=== PATIENT | male | born 1980 | race Caucasian/White ===

== ENCOUNTER → 2018-06-18 22:51 | Outpatient (CLI) | payer OTHER, SELFPAY ==
[2018-06-18 23:01] LABS: Absolute Lymphocyte Count 2.39 X10^3/ul (0.83-4.51); Absolute Neutrophil Count 3.8 X10^3/uL (2.0-7.7); Basophil# 0.01 X10^3/uL; Basophil% 0.1 % (0-1); Hematocrit 39.7 % (40-54); Hemoglobin 13.6 g/dl (13.0-16.5); Lymphocyte # 2.39 X10^3/ul (4.0); Lymphocyte % 34.8 % (19-41); Mean Corp Hgb Conc 34.3 g/gl (32-36); Mean Corpuscular Hgb 30.2 pg (27.0-32.0); Mean Platelet Vol. 10.1 fl (6.2-12.0); Monocyte# 0.62 X10^3/uL; Neutrophil # 3.84 X10^3/uL (2.7-7.7); Platelet Count 176 K/mm3 (150-450); RBC Distribution Width CV 12.9 % (11.6-14.6); RBC Distribution Width SD 41.5 fl (35.1-43.9); Red Blood Count 4.51 M/mm3 (4.6-6.2); White Blood Count 6.9 K/mm3 (4.4-11.0)
[2018-06-18 23:05] LABS: POSITIVE COUNT NO; POSITIVE DIFFERENTIAL NO; POSITIVE MORPHOLOGY NO
[2018-06-18 23:27] LABS: ALB/GLOB Ratio 1.3 RATIO (0.9-2.4); AST(SGOT) 20 U/L (15-37); Alanine Aminotransfer ALT/SGPT 29 U/L (16-61); Albumin, Serum 3.9 g/dL (3.2-5.0); Alkaline Phosphatase 100 U/L (45-117); Anion Gap 6 (5-15); BUN 17 mg/dL (7-18); BUN/Creat Ratio 14.7 RATIO (10-20); Calcium,Total 8.1 mg/dL (8.5-10.1); Chloride 106 mmol/L (98-107); Creatinine, Serum 1.16 mg/dL (0.70-1.30); EST Glomerular Filtration Rate 74 mL/min (>60); Est Glom Filt Rate - Afr Amer 90 mL/min (>60); Globulin 3.1 g/dL (2.2-4.2); Glucose 66 mg/dL (74-106); Potassium 4.1 mmol/L (3.5-5.1); Sodium Level 141 mmol/L (136-145)
== END ==
PROVIDERS: Visit Provider Nurse Practitioner
DX: I35.1 Nonrheumatic aortic (valve) insufficiency (principal); R06.02 Shortness of breath
CPT/HCPCS: 80053; 84443; 85025

== ENCOUNTER → 2018-07-04 09:31 | Outpatient (CLI) | payer OTHER, SELFPAY ==
--- NOTE | 2018-07-04 09:36 | STE_ITS ---
Reason For Study: VAVLE REPLACEMENT-EVAL Stress Results Protocol: Alma Protocol Maximum Predicted HR: 180 bpm Target HR: 153 bpm % Maximum Predicted HR: 94 % DurationHeart Rate Stage (mm:ss) (bpm) BP Comment BASELINE 63 122/82SOB WHEN ARRIVED ALMA 1 3:00 95 132/86 STAGE 2 3:00 115 140/86 STAGE 3 3:00 127 142/84 STAGE 4 3:00 146 144/80 STAGE 5 2:00 169 / RECOVERY 90 120/88DIZZY WHEN TREADMILL STOPPED ABRUBTLY Stress Duration: 14:00 mm:ss Maximum Stress HR: 169 bpm Baseline Echocardiogram Findings The estimated ejection fraction is 65 %. Stress Echo Wall motion Data Resting WM Intermediate WM Stress WM Resting Wall Motion Wall Motion Stress No regional wall motion No regional wall motion abnormalities noted. abnormalities noted. EKG Data The baseline ECG displays normal sinus rhythm. The patient exercised according to the regular Alma protocol for a total duration of 14:00. The maximum heart rate attained was 171 beats per minute. This was 95% of maximum predicted heart rate. The patient exercised into stage 5 of the Alma protocol. During stress, there were no ST or T wave changes noted to suggest ischemia. No clinical angina was noted. Interpretation Summary The estimated ejection fraction is 65 %. Normal, adequate, treadmill echocardiogram. Negative for ischemia by EKG and echocardiographic anterior. No anginal symptoms noted. No arrhythmias noted. Appropriate blood pressure response to exercise. Patient's baseline peak and mean gradient across the aortic valve for 25/15 mmHg respectively. Peak gradient at across the aortic valve at peak exercise was 70/42 mmHg. The patient had excellent exercise capacity for age. Final LVEF is 75%. Test terminated due to leg discomfort. No acute decrease in blood pressure at peak exercise. Aortic valve most likely does not need to be replaced at this time. Ordering Physician: Perfecto Keita Referring Physician: Perfecto Keita Performed By: Brodwolf, Aroldo, RCS
== END ==
PROVIDERS: Family Provider Nurse Practitioner; PCP Nurse Practitioner; Referring Provider Internal Medicine Cardiovascular Disease; Visit Provider Internal Medicine Cardiovascular Disease
DX: I35.0 Nonrheumatic aortic (valve) stenosis (principal); I35.1 Nonrheumatic aortic (valve) insufficiency; R06.02 Shortness of breath; R01.1 Cardiac murmur, unspecified
CPT/HCPCS: 93017; 93350

== ENCOUNTER → 2018-08-08 20:35 | Outpatient (CLI) | payer OTHER, SELFPAY ==
[2018-06-24 09:56] VITALS: BMI 25.4
[2018-08-08 21:05] LABS: AST(SGOT) 23 U/L (15-37); Alanine Aminotransfer ALT/SGPT 30 U/L (16-61); Alkaline Phosphatase 99 U/L (45-117); Cholesterol 147 mg/dL (200); High Density Lipoprotein 38 mg/dL; Triglycerides 270 mg/dL; Very Low Density Lipoprotein 54 mg/dL (5-40)
[2018-08-08 21:09] LABS: Free T3 3.3 pg/mL (2.18-3.98); T4 Free Direct 1.21 ng/dL (0.76-1.46); Thyroid Stim Hormone (TSH) 0.92 uIU/mL (0.358-3.74)
[2018-08-10 11:05] LABS: Thyroid Peroxidase AB 115 IU/mL (0-34)
== END ==
PROVIDERS: Internal Medicine Cardiovascular Disease; Family Provider Nurse Practitioner; PCP Nurse Practitioner; Referring Provider Nurse Practitioner; Visit Provider Nurse Practitioner
DX: E03.9 Hypothyroidism, unspecified (principal)
CPT/HCPCS: 80061; 80076; 84439; 84443; 84481; 86376

== ENCOUNTER → 2019-04-21 17:38 | Outpatient (CLI) | payer BC, SELFPAY ==
[2018-11-25 16:39] VITALS: BMI 25.7
--- NOTE | 2019-04-21 18:15 | MRI_ITS ---
STUDY: MRI BRAIN WITH AND WITHOUT CONTRAST REASON FOR EXAM: Male, 39 years old. Right-sided hearing loss and pain TECHNIQUE: Standardized multiplanar fat and water weighted pulse sequences were obtained. 17 IV Dotarem was administered for the contrast portion of the examination. COMPARISON: None. FINDINGS: Normal size of the ventricles and extra-axial spaces for the patient's age. Normal white matter tracts of the supratentorial brain. Normal bilateral basal ganglia. Normal thalami. There is no extra-axial fluid accumulation. Normal flow voids within the major intracranial circulation suggesting patency by spin echo criteria. There is a small venous angioma seen in the right frontal lobe likely of no significance. Normal sella turcica, pituitary gland, infundibular stalk, optic chiasm and hypothalamus. Normal tectal plate and pineal gland. Normal midbrain, marilou and medulla. Normal cerebellum. Normal basal cisterns. Normal bilateral temporal bones. Normal bilateral internal auditory canals. No demonstrated orbital abnormality, within the constraints of a routine brain study. Mild bilateral mucosal thickening of the maxillary sinuses.. Normal calvarium and skull base. 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 Normal visualized upper cervical spine. MRI/Brain W/WO Contrast IMPRESSION: Small venous angioma within the right frontal lobe likely of no significance.. Mild bilateral maxillary sinus disease. 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 No evidence for acoustic or vestibular schwannoma. Electronically Signed: Austen Justin MD at 19:56 EDT , Service support ,
== END ==
PROVIDERS: Family Provider Nurse Practitioner; PCP Nurse Practitioner; Referring Provider Otolaryngology; Visit Provider Otolaryngology
DX: H93.11 Tinnitus, right ear (principal); H91.91 Unspecified hearing loss, right ear
CPT/HCPCS: 70553; A9575

== ENCOUNTER → 2019-06-10 21:53 | Outpatient (CLI) | payer BC, SELFPAY ==
[2019-06-09 12:12] VITALS: BMI 24.5
[2019-06-10 22:24] LABS: T4 Free Direct 1.22 ng/dL (0.76-1.46); Thyroid Stim Hormone (TSH) 0.47 uIU/mL (0.358-3.74)
[2019-06-12 12:29] LABS: Thyroid Peroxidase AB 72 IU/mL (0-34)
== END ==
PROVIDERS: Family Provider Nurse Practitioner; PCP Nurse Practitioner; Visit Provider Nurse Practitioner
DX: E03.9 Hypothyroidism, unspecified (principal); R42 Dizziness and giddiness
CPT/HCPCS: 84439; 84443; 86376

== ENCOUNTER → 2020-01-25 | Outpatient (CLI) | payer SELFPAY ==
[2019-10-06 18:03] VITALS: BMI 25.2
[2020-01-25 22:30] LABS: T3 Total - Triiodothyronine 1.06 ng/mL (0.6-1.81)
[2020-01-25 22:36] LABS: T4 Free Direct 1.08 ng/dL (0.76-1.46); Thyroid Stim Hormone (TSH) 1.23 uIU/mL (0.358-3.74)
[2020-01-27 13:29] LABS: Thyroid Peroxidase AB 96 IU/mL (0-34)
== END | disposition home or self-care (01) ==
PROVIDERS: Visit Provider Nurse Practitioner
DX: E03.9 Hypothyroidism, unspecified (principal); E06.3 Autoimmune thyroiditis
CPT/HCPCS: 84439; 84443; 84480; 86376

== ENCOUNTER → 2020-04-26 21:48 | Outpatient (CLI) | payer BC, SELFPAY ==
[2020-01-25 12:43] VITALS: BMI 24.3
[2020-04-26 22:18] LABS: T3 Total - Triiodothyronine 1.19 ng/mL (0.6-1.81)
[2020-04-26 22:28] LABS: T3 Uptake 41 % (33-40); T4 Free Direct 1.38 ng/dL (0.76-1.46); Thyroid Stim Hormone (TSH) 0.37 uIU/mL (0.358-3.74)
== END ==
PROVIDERS: Visit Provider Nurse Practitioner
DX: E06.3 Autoimmune thyroiditis (principal); H81.09 Meniere's disease, unspecified ear; E03.9 Hypothyroidism, unspecified
CPT/HCPCS: 84439; 84443; 84479; 84480

== ENCOUNTER → 2020-10-19 21:37 | Outpatient (CLI) | payer BC, SELFPAY ==
[2020-10-19 18:37] VITALS: BMI 25.2
[2020-10-19 22:05] LABS: T4 Free Direct 1.14 ng/dL (0.76-1.46); Thyroid Stim Hormone (TSH) 0.85 uIU/mL (0.358-3.74)
== END ==
PROVIDERS: Referring Provider Nurse Practitioner; Visit Provider Nurse Practitioner
DX: E03.9 Hypothyroidism, unspecified (principal)
CPT/HCPCS: 84439; 84443

== ENCOUNTER → 2021-03-16 21:33 | Outpatient (CLI) | payer BC, SELFPAY ==
[2021-03-16 21:11] VITALS: BMI 24.3
[2021-03-16 22:18] LABS: Absolute Lymphocyte Count 1.54 X10^3/uL (0.83-4.51); Absolute Neutrophil Count 5.6 X10^3/uL (2.0-7.7); Basophil# 0.03 X10^3/uL; Basophil% 0.4 % (0-1); Hematocrit 41.2 % (40-54); Hemoglobin 13.9 g/dL (13.0-16.5); Lymphocyte # 1.54 X10^3/ul (0.83-4.51); Lymphocyte % 20.3 % (19-41); Mean Corp Hgb Conc 33.7 g/dL (32-36); Mean Corpuscular Hgb 29.5 pg (27.0-32.0); Mean Corpuscular Volume 87.5 fL (80-94); Mean Platelet Vol. 9.5 fl (6.2-12.0); Monocyte# 0.42 X10^3/uL; Monocyte% 5.5 % (0-10); NRBC Flagged by Analyzer 0 % (0-5); Neutrophil # 5.57 X10^3/uL (2.7-7.7); Neutrophil % 73.3 % (47-70); Platelet Count 306 K/mm3 (150-450); RBC Distribution Width CV 12.7 % (11.6-14.6); RBC Distribution Width SD 40.4 fl (35.1-43.9); Red Blood Count 4.71 M/mm3 (4.6-6.2); White Blood Count 7.6 K/mm3 (4.4-11.0)
[2021-03-16 22:35] LABS: T4 Free Direct 1.23 ng/dL (0.76-1.46); Thyroid Stim Hormone (TSH) 2.03 uIU/mL (0.358-3.74)
[2021-03-16 22:45] LABS: D-Dimer Quantitative (DVT/PE) 0.74 FEU/ug/m (0.27-0.49)
[2021-03-16 22:50] LABS: BNP,B-Type NATRIURETIC PEPTIDE 59.8 pg/mL (0-100)
== END ==
PROVIDERS: Referring Provider Nurse Practitioner; Visit Provider Nurse Practitioner
DX: E03.9 Hypothyroidism, unspecified (principal); R06.02 Shortness of breath
CPT/HCPCS: 83880; 84439; 84443; 85025; 85379

== ENCOUNTER 2021-11-10 21:38 | Outpatient (CLI) | payer BC, SELFPAY | END 2021-11-10 23:59 | disposition home or self-care (01) | PROVIDERS: Referring Provider Nurse Practitioner; Visit Provider Nurse Practitioner | DX: E03.9 Hypothyroidism, unspecified (principal) | CPT/HCPCS: 84443 ==

== ENCOUNTER → 2022-12-03 | Outpatient (CLI) | payer BC, SELFPAY ==
[2022-12-03 22:05] LABS: T4 Free Direct 0.98 ng/dL (0.76-1.46); Thyroid Stim Hormone (TSH) 3.53 uIU/mL (0.358-3.74)
== END | disposition home or self-care (01) ==
PROVIDERS: Visit Provider Nurse Practitioner
DX: E03.9 Hypothyroidism, unspecified (principal)
CPT/HCPCS: 84439; 84443

== ENCOUNTER → 2023-07-31 | Outpatient (CLI) | payer OTHER, SELFPAY ==
[2023-07-31 20:41] LABS: Cholesterol 177 mg/dL (200); High Density Lipoprotein 34 mg/dL; T4 Free Direct 0.59 ng/dL (0.76-1.46); Triglycerides 490 mg/dL
== END | disposition home or self-care (01) ==
PROVIDERS: PCP Nurse Practitioner; Visit Provider Nurse Practitioner
DX: E06.3 Autoimmune thyroiditis (principal); E03.9 Hypothyroidism, unspecified
CPT/HCPCS: 80061; 84439; 84443

== ENCOUNTER → 2023-09-10 | Outpatient (CLI) | payer OTHER, SELFPAY ==
--- OUTSIDE RECORDS SUMMARY | 2023-09-10 21:34 | XMS RPT_ITS | CCD ---
Author Name Unknown Address [facility] [facility] [address] [place] [address] Organization [facility] Care Team Providers Care Chiropractor Assistant Name Role Phone SKEY GALINDO Unavailable JAMES COUGHLIN Primary Care Unavailable OSKAR KIM, RADU Attending Unavail JAMES Lora Primary Care Unavailable OSKAR KIM, RADU Attending Unavail JAMES Lora Primary Care Unavailable Problems Problem Classification Problem Date Documented Da te Episodic/Chronic Heart valve disorders (1 source) Nonrheumatic aortic (valve) stenosis; Translations: [Nonrheumatic aortic (valve) stenosis] Onset: 11-19-2017 Chronic Other lower respiratory disease (1 source) Shortness of breath; Translations: [Shortness of breath] Onset: 11-19-2017 Episodic Results Test Name Value Interpretation Reference Range Facil ity Encounters Encounter Date Encounter Type Care Provider Facility Start: 08-13-2023 End: 08-13-2023 ambulatory JAMES COUGHLIN Facility:[facility] Start: 08-27-2022 End: 08-28-2022 ambulatory JAMESTate COUGHLIN Facility:[facility] Start: 11-19-[address] [facility] Payers Date Payer Category Payer Unknown 1980 Unknown [id number] 1980 Unknown [id number] Progress note 08-13-2023 Note Date & Type Note Facility 08-13-2023 Note HNO ID: [id number] Author: Juhi Schmidt APRN.[employer] Service: ? Author Type: Nurse Practitioner Type: Progress Notes Filed: 08/13/2023 12:50 PM Note Text: This note was created using Blabroomriter. Subjective Carolina Kimbrough is a 43 year old male. HPI by patient: Carolina Kimbrough is a 43 year old presenting to the office with the complaint of viral symptoms. Started approximately 1 week ago , last Saturday. Associated symptoms include cough, congestion, fatigue, body aches, headache, and sore throat. Denies ear pain, gi symptoms, and fever. Covid Immunization Dates Overdue - Covid-19 Vaccine (1) Never done No completion, postpone, frequency change, or communication history exists for this topic. Sick contacts: yes. Smoking history/second hand smoke: none. OTC nyquil only at night. No antibiotic use in the last 60 days. ALLERGIES No Known Allergies Family History Reviewed Including Cardiac Diseases, Psychiatric Diseases, AND Substance Abuse Problem: Stroke Relation: Mother Age of Onset: (Not Specified) Comment: age 52 Problem: No Known Problems Relation: Father Age of Onset: (Not Specified) Comment: alive age 67 Problem: No Known Problems Relation: Child Age of Onset: (Not Specified) Comment: daughter 13 y o well Problem: No Ocular Disease Relation: No Family History Age of Onset: (Not Specified) Social History Tobacco Use Smoking status: Never Smokeless tobacco: Never Vaping Use Vaping Use: Never used Alcohol use: Yes Comment: 3-4 beers one weekday and just weekend Drug use: Yes Frequency: 3.0 times per week Types: Marijuana Comment: marijuanna 3 x per week Active Ambulatory Problems Pre-op testing Date Noted: 02/17/2021 Discharge planning issues Date Noted: 02/17/2021 Aortic valve regurgitation Date Noted: 02/17/2021 Meniere's disease Date Noted: 02/17/2021 Hypothyroidism Postoperative pain HTN (hypertension) Thoracic aortic aneurysm without rupture (HCC) Atelectasis Date Noted: 02/21/2021 Fluid overload Date Noted: 02/22/2021 Encounter for support and coordination of transition of care Date Noted: 02/23/2021 Resolved Ambulatory Problems On mechanically assisted ventilation (HCC) Hypovolemia Past Medical History: No date: Aortic stenosis No date: Bicuspid aortic valve No date: Meniere's syndrome Review of Systems Constitutional: Positive for fatigue. Negative for fever. HENT: Positive for congestion and sore throat. Negative for ear pain. Eyes: Negative. Respiratory: Positive for cough. Cardiovascular: Negative. Gastrointestinal: Negative. Endocrine: Negative. Genitourinary: Negative. Musculoskeletal: Positive for myalgias. Skin: Negative. Neurological: Positive for headaches. Objective Pulse 78 Temp 37 ?C (98.6 ?F) (Oral) Resp 16 Ht 177.8 cm (5' 10 ) Wt 84.4 kg (186 lb 1.1 oz) SpO2 98% BMI 26.70 kg/m? Physical Exam Vitals reviewed. Constitutional: General: He is awake. He is not in acute distress. Appearance: He is not ill-appearing, toxic-appearing or diaphoretic. HENT: Head: Normocephalic and atraumatic. Right Ear: Tympanic membrane, ear canal and external ear normal. Left Ear: Tympanic membrane, ear canal and external ear normal. Nose: Nose normal. Right Sinus: No maxillary sinus tenderness or frontal sinus tenderness. Left Sinus: No maxillary sinus tenderness or frontal sinus tenderness. Mouth/Throat: Mouth: Mucous membranes are moist. Pharynx: Oropharynx is clear. No pharyngeal swelling, oropharyngeal exudate or posterior oropharyngeal erythema. Cardiovascular: Rate and Rhythm: Normal rate and regular rhythm. Pulmonary: Effort: Pulmonary effort is normal. Breath sounds: Normal breath sounds. Lymphadenopathy: Head: Right side of head: No submandibular or tonsillar adenopathy. Left side of head: No submandibular or tonsillar adenopathy. Cervical: No cervical adenopathy. Neurological: Mental Status: He is alert. Psychiatric: Behavior: Behavior is cooperative. Assessment and Plan (J02.9) Pharyngitis, unspecified etiology (primary encounter diagnosis) Plan: STREP A MOLECULAR (POC) (J06.9) Viral upper respiratory tract infection with cough Plan: benzonatate (TESSALON PERLES) 100 mg capsule, fluticasone (FLONASE ALLERGY RELIEF) 50 mcg/actuation nasal spray Education on viral vs bacterial infections. Most viral infections will last 10 days, sometimes 14. It is possible to have back to back viral infections. An antibiotic will not treat a virus. Negative strep culture in office. Assessment is completely normal. -If no improvement in the next several days with what I'm prescribing you may the antibiotic on the paper script. -Tessalon for cough, these are capsules you swallow, do not chew. -Drink lots of fluids and get plenty of rest. Gargle with salt water 3 times/day -Vaporizers, cool mist humidifiers, warm showers, (more content not included)... [facility] Summary Purpose Family History No Family History Records FoundNo Family History Records FoundNo Family History Records FoundNo Family History Records Found Advance Directives No Advanced Directives Records FoundNo Advanced Directives Records FoundNo Advanced Directives Records FoundNo Advanced Directives Records Found Additional Source Comments (unrecognized sect ion and content) No Status Records FoundNo Status Records FoundNo Status Records FoundNo Status Records Found INFORMATION SOURCE (unrecogn ized section and content) DATE CREATED AUTHOR AUTHOR'S ORGANIZ ATION 03/18/2021 [facility] DATE CREATED AUTHOR AUTHOR'S ORGANIZ ATION 08/10/2023 [facility] DATE CREATED AUTHOR AUTHOR'S ORGANIZ ATION 08/14/2023 [facility] FOR RECORDS PERTAINING TO PATIENTS WHO ARE OR HAVE BEEN ENROLLED IN A CHEMICAL DEPENDENCY/SUBSTANCEABUSE PROGRAM, SOME INFORMATION MAY BE OMITTED. This clinical summary was aggregated from multiple sources. Caution should be exercised in using it in the provision of clinical care. This summary normalizes information from multiple sources, and as a consequence, information in this document may materially change the coding, format and clinical context of patient data. In addition, data may be omitted in some cases. CLINICAL DECISIONS SHOULD BE BASED ON THE PRIMARY CLINICAL RECORDS. [facility] [employer] [facility]. provides no warranty or guarantee of the accuracy or completeness of information in this document.
[2023-09-10 22:25] LABS: Thyroid Stim Hormone (TSH) 2.18 uIU/mL (0.358-3.74)
== END | disposition home or self-care (01) ==
PROVIDERS: PCP Nurse Practitioner; Visit Provider Nurse Practitioner
DX: E06.3 Autoimmune thyroiditis (principal); E03.9 Hypothyroidism, unspecified
CPT/HCPCS: 84443

== ENCOUNTER → 2024-09-14 | Outpatient (CLI) | payer OTHER, SELFPAY ==
[2024-09-15 00:53] LABS: Absolute Lymphocyte Count 2.26 X10^3/uL (0.83-4.51); Basophil# 0.03 X10^3/uL; Basophil% 0.3 % (0-1); Eosinophil# 0.01 X10^3/uL; Eosinophils% 0.1 % (0-5); Hematocrit 40.7 % (40-54); Hemoglobin 14.1 g/dL (13.0-16.5); Lymphocyte # 2.26 X10^3/ul (0.83-4.51); Lymphocyte % 25.8 % (19-41); Mean Corp Hgb Conc 34.6 g/dL (32-36); Mean Corpuscular Hgb 30.3 pg (27.0-32.0); Mean Corpuscular Volume 87.5 fL (80-94); Mean Platelet Vol. 10.8 fl (6.2-12.0); Monocyte# 0.48 X10^3/uL; Monocyte% 5.5 % (0-10); NRBC Flagged by Analyzer 0 % (0-5); Neutrophil # 5.95 X10^3/uL (2.7-7.7); Platelet Count 232 K/mm3 (150-450); RBC Distribution Width CV 12.9 % (11.6-14.6); RBC Distribution Width SD 41.1 fl (35.1-43.9); Red Blood Count 4.65 M/mm3 (4.6-6.2); White Blood Count 8.8 K/mm3 (4.4-11.0)
[2024-09-15 01:16] LABS: ALB/GLOB Ratio 1.2 RATIO (0.9-2.4); AST(SGOT) 20 U/L (15-37); Alanine Aminotransfer ALT/SGPT 26 U/L (16-61); Alkaline Phosphatase 109 U/L (45-117); Anion Gap 6 (5-15); BUN 13 mg/dL (7-18); BUN/Creat Ratio 10.7 RATIO (10-20); Calcium,Total 8.9 mg/dL (8.5-10.1); Chloride 106 mmol/L (98-107); Creatinine, Serum 1.21 mg/dL (0.70-1.30); EST Glomerular Filtration Rate 69 mL/min (>60); Est Glom Filt Rate - Afr Amer 83 mL/min (>60); Globulin 3.2 g/dL (2.2-4.2); Glucose 96 mg/dL (74-106); Protein, Total 7.2 g/dL (6.4-8.2); Sodium Level 140 mmol/L (136-145)
== END | disposition home or self-care (01) ==
PROVIDERS: PCP Nurse Practitioner; Referring Provider Nurse Practitioner; Visit Provider Nurse Practitioner
DX: E06.3 Autoimmune thyroiditis (principal); H81.03 Meniere's disease, bilateral
CPT/HCPCS: 80053; 84443; 85025

== ENCOUNTER → 2024-11-10 | Outpatient (CLI) | payer OTHER, SELFPAY ==
[2024-11-11 00:04] LABS: PTHIN 65 pg/mL (11-61)
[2024-11-11 00:15] LABS: Thyroid Stim Hormone (TSH) 0.013 uIU/mL (0.300-4.200)
[2024-11-13 04:06] LABS: PROLACTIN 15.4 ng/mL (3.9-22.7)
== END | disposition home or self-care (01) ==
PROVIDERS: PCP Nurse Practitioner; Referring Provider Nurse Practitioner; Visit Provider Nurse Practitioner
DX: E06.3 Autoimmune thyroiditis (principal); E03.9 Hypothyroidism, unspecified; H81.03 Meniere's disease, bilateral
CPT/HCPCS: 83970; 84146; 84439; 84443

== ENCOUNTER → 2025-02-19 | Outpatient (CLI) | payer OTHER, SELFPAY ==
--- OUTSIDE RECORDS SUMMARY | 2025-02-19 22:49 | XMS RPT_ITS | CCD ---
Author Organization [facility] Care Team Providers Care Inspector Chief Name Role Phone SKYE GALINDO Unavailable Unavailable JAMES COUGHLIN Primary Care Unavailable MATIAS RAMIREZ Attending Unavailable Amado DIRECTOR NETWORK DEVELOPMENT-C, James Primary Care Provider [phone] Amado DIRECTOR NETWORK DEVELOPMENT-C, James Attending Provider Amado DIRECTOR NETWORK DEVELOPMENT-C, James Referring Provider Amado DIRECTOR NETWORK DEVELOPMENT, James Referring Unavailable Coughlin DIRECTOR NETWORK DEVELOPMENT, James Primary Care Unavailable Coughlin DIRECTOR NETWORK DEVELOPMENT, James Attending Unavailable Coughlin DIRECTOR NETWORK DEVELOPMENT, James Referring Unavailable Coughlin DIRECTOR NETWORK DEVELOPMENT, James Primary Care Unavailable Amado DIRECTOR NETWORK DEVELOPMENT, James Attending Unavailable JAMES COUGHLIN Primary Care Unavailable COUGHLIN, DORA Primary Care Unavailable COUGHLIN, DORA Primary Care Unavailable Medications Current Medications Medication Drug Class(es) Dates Sig (Normalized) Sig (Original) meclizine hydrochloride 12.5 mg oral tablet (1 source) Antiemetic Start: 11-10-2024 take 1 tablet by mouth three times daily as needed for dizziness Meclizine 12.5 mg tablet Active 12.5 mg PO THREE TIMES A DAY as needed for dizziness November 10, 2024 12:00am Thyroid (Pork) ([place] Thyroid) 60 mg tablet (1 source) Start: 09-15-2024 take 1 tablet by mouth once daily Thyroid (Pork) ([place] Thyroid) 60 mg tablet Active 60 mg PO daily September 15, 2024 1:00am Thyroid (Pork) ([place] Thyroid) 90 mg tablet (3 sources) Start: 09-15-2024 Thyroid (Pork) ([place] Thyroid) 90 mg tablet Active 90 mg PO DAILY September 15, 2024 3:43pm 90mg+ 60 mg= 120mg Start: 09-13-2023 End: 09-15-2024 Thyroid (Pork) ([place] Thyro id) 90 mg tablet Discontinued 90 mg PO DAILY September 13, 2023 2:27pm September 15, 2024 3:44pm 90mg+ 30 mg= 120mg Start: 09-13-2023 Thyroid (Pork) ([place] Thyroid) 90 mg tablet Active 90 MG PO DAILY September 13, 2023 1:27pm 90mg+ 30 mg= 120mg Completed/Discontinued Medications Medication Drug Class(es) Dates Sig (Normalized) Sig (Original) amoxicillin 875 mg oral tablet (10 sources) Penicillin-class Antibacterial Start: 01-26-2020 End: 04-27-2020 take 1 tablet by mouth twice daily Amoxicillin 875 mg tablet Discontinued 875 mg PO TWICE A DAY January 26, 2020 12:00am April 27, 2020 8:21am Start: 11-25-2018 End: 06-10-2019 take 1 tablet by mouth twice daily Amoxicillin 875 mg tablet Discontinued 875 mg PO TWICE A DAY November 25, 2018 12:00am June 10, 2019 12:14pm azithromycin 250 mg oral tablet (6 sources) Macrolide Antimicrobial Start: 07-27-2024 End: 08-01-2024 take 2 tablets by mouth once daily, then take 1 tablet by mouth once daily at mealtime Azithromycin 250 mg tablet Discontinued 250 mg PO daily 01 14July 27, 2024 1:00am July 31, 2024 1:00am August 01, 2024 1:18am 2 po qd for 1 day then 1 po qd for 4 days with food or after eating Start: 05-15-2019 End: 05-20-2019 take 2 tablets by mouth once daily, then take 1 tablet by mouth once daily at mealtime Azithromycin 250 mg tablet Discontinued 250 mg PO daily 6 May 15, 2019 12:00am May 19, 2019 12:00am May 20, 2019 12:07am 2 po qd for 1 day then 1 po qd for 4 days with food or after eating hydroCHLOROthiazide 25 mg oral tablet (5 sources) Thiazide Diuretic Start: 10-06-2019 End: 10-19-2020 take 1 tablet by mouth twice daily Hydrochlorothiazide 25 mg tablet Discontinued 25 mg PO TWICE A DAY October 06, 2019 1:00am October 19, 2020 7:32pm hydroCHLOROthiazide 25 mg / triamterene 37.5 mg oral capsule (5 sources) Potassium-sparing Diuretic, Thiazide Diuretic Start: 06-11-2019 End: 07-10-2019 Triamterene-Hydrochlor othiazid (Dyazide) 37.5-25 mg capsule Discontinued 1 NMA PO DAILY June 11, 2019 12:00am July 10, 2019 7:58pm levoFLOXacin 500 mg oral tablet (5 sources) Quinolone Antimicrobial Start: 06-11-2019 End: 07-10-2019 take 1 tablet by mouth once daily Levofloxacin 500 mg tablet Discontinued 500 mg PO DAILY June 11, 2019 12:00am July 10, 2019 7:58pm levothyroxine sodium 0.15 mg oral tablet (20 sources) l-Thyroxine Start: 11-13-2021 End: 12-04-2022 take 1 tablet by mouth once daily Levothyroxine 150 mcg tablet Discontinued 150 ug PO DAILY November 13, 2021 12:00am December 04, 2022 1:06pm Start: 10-21-2020 End: 11-13-2021 take 1 tablet by mouth once daily Levothyroxine 175 mcg tablet Discontinued 175 ug PO DAILY October 21, 2020 1:00am November 13, 2021 10:56am Start: 05-23-2020 End: 03-20-2021 Levothyroxine 25 mcg tablet Discontinued 25 ug PO DAILY May 23, 2020 12:00am March 20, 2021 12:11pm taken with 150 mcg every other day Start: 10-06-2019 End: 03-20-2021 take 1 tablet by mouth once daily Levothyroxine 150 mcg tablet Discontinued 150 ug PO DAILY October 06, 2019 1:00am March 20, 2021 12:11pm Start: 06-19-2018 End: 10-06-2019 take 1 capsule by mouth once daily Levothyroxine 150 mcg capsule Discontinued 150 ug PO DAILY August 09, 2018 3:47pm October 06, 2019 7:04pm Start: 06-17-2018 End: 06-19-2018 take 1 tablet by mouth once daily Levothyroxine 125 mcg tablet Discontinued 125 ug PO DAILY June 17, 2018 1:00am June 19, 2018 10:54am Thyroid (Pork) ([place] Thyroid) 30 mg tablet (7 sources) Start: 09-13-2023 End: 09-15-2024 Thyroid (Pork) ([place] Thyro id) 30 mg tablet Discontinued 30 mg PO DAILY September 13, 2023 2:27pm September 15, 2024 3:44pm take with 90 +30 = 120 Start: 09-13-2023 Thyroid (Pork) ([place] Thyroid) 30 mg tablet Active 30 MG PO DAILY September 13, 2023 1:27pm take with 90 +30 = 120 Start: 09-11-2023 End: 09-13-2023 Thyroid (Pork) ([place] Thyro id) 30 mg tablet Discontinued 30 mg PO DAILY September 11, 2023 10:21am September 13, 2023 2:27pm take with 90 +30 = 120 Start: 09-11-2023 End: 09-13-2023 Thyroid (Pork) ([place] Thyro id) 30 mg tablet Discontinued 30 MG PO DAILY September 11, 2023 9:21am September 13, 2023 1:27pm take with 90 +30 = 120 Start: 08-01-2023 End: 09-11-2023 Thyroid (Pork) ([place] Thyro id) 30 mg tablet Discontinued 30 mg PO DAILY August 01, 2023 1:00am September 11, 2023 10:22am take with 90 +30 = 120 Start: 08-01-2023 End: 09-11-2023 Thyroid (Pork) ([place] Thyro id) 30 mg tablet Discontinued 30 MG PO DAILY August 01, 2023 12:00am September 11, 2023 9:22am take with 90 +30 = 120 Start: 08-01-2023 Thyroid (Pork) ([place] Thyroid) 30 mg tablet Active 30 MG PO DAILY August 01, 2023 12:00am take with 90 +30 = 120 thyroid (group home) 90 mg oral tablet (20 sources) Start: 09-11-2023 End: 09-13-2023 Thyroid (Pork) ([place] Thyro id) 90 mg tablet Discontinued 90 mg PO DAILY September 11, 2023 10:21am September 13, 2023 2:27pm 90mg+ 30 mg= 120mg Start: 12-04-2022 End: 09-11-2023 Thyroid (Pork) ([place] Thyro id) 90 mg tablet Discontinued 90 mg PO DAILY December 04, 2022 12:00am September 11, 2023 10:22am 90mg+ 15MG =105 mg Start: 12-04-2022 End: 08-01-2023 take 1 mg by mouth once daily Thyroid (Pork) ([place] T hyroid) 15 mg tablet Discontinued 15 mg PO DAILY December 04, 2022 12:00am August 01, 2023 2:13pm 90mg+15 mg =105 mg Start: 01-26-2020 End: 05-23-2020 take 1 tablet by mouth once daily Thyroid (Pork) 15 mg tablet Discontinued 15 mg PO DAILY April 29, 2020 12:22pm May 23, 2020 12:49pm valACYclovir 1000 mg oral tablet (5 sources) Herpesvirus Nucleoside Analog DNA Polymerase Inhibitor, Herpes Simplex Virus Nucleoside Analog DNA Polymerase Inhibitor, Herpes Zoster Virus Nucleoside Analog DNA Polymerase Inhibitor Start: 07-10-2019 End: 10-19-2020 Valacyclovir 1 gram tablet Discontinued 1000 mg PO THREE TIMES A DAY 90 July 10, 2019 1:00am October 19, 2020 7:32pm Start: 07-10-2019 End: 10-19-2020 take 1000 mg by mouth three times daily Valacyclovir Discontinued 1000 MG PO THREE TIMES A DAY 90 July 10, 2019 12:00am October 19, 2020 6:32pm Problems Problem Classification Problem Date Documented Da te Episodic/Chronic Conditions associated with dizziness or vertigo (10 sources) Meniere's disease; Translations: [Meniere's disease, unspecified ear] 10-19-2020 Chronic Conditions associated with dizziness or vertigo (7 sources) Dizziness; Translations: [Dizziness and giddiness] Onset: 10-18-2024 06-10-2019 Episodic Heart valve disorders (11 sources) Nonrheumatic aortic (valve) stenosis; Translations: [Aortic valve regurgitation] Onset: 11-19-2017 06-20-2018 Chronic Comment on above: Moderate per echo 05/2018 done @ [facility] NAVDEEP 1,63 cm2 per ech o 11/19/2017 done @ [facility] Heart valve disorders (5 sources) Heart murmur; Translations: [Cardiac murmur, unspecified] 06-20-2018 Episodic Other ear and sense organ disorders (5 sources) Impacted cerumen; Translations: [Impacted cerumen, unspecified ear] 11-25-2018 Episodic Other lower respiratory disease (1 source) Shortness of breath; Translations: [Shortness of breath] Onset: 11-19-2017 Episodic Other lower respiratory disease (5 sources) Dyspnea; Translations: [Shortness of breath] 06-20-2018 Episodic Other upper respiratory infections (1 source) Pharyngitis; Translations: [Acute pharyngitis, unspecified] 07-27-2024 Episodic Otitis media and related conditions (15 sources) Otitis media; Translations: [Otitis media, unspecified, left ear] 06-10-2019 Episodic Thyroid disorders (11 sources) Acquired hypothyroidism; Translations: [Hypothyroidism, unspecified] Onset: 11-16-2024 06-10-2019 Chronic Results Test Name Value Interpretation Reference Range Facility PROLACTIN 4465on 11-13-2024 PROLACTIN 15.4 ng/mL Normal 3.9-22.7 [facility] Comment on above: Result Comment: Perf ormed at: [facility] [address] [id number] [place] Vending Mechanic: Duncan Paris PhD, Phone: [phone] Performed By: #### L 506.0400, L501.9520, L3100.5400, L509.1000 #### [facility] [address] [place], [address] PTHINon 11-11-2024 PTH 65 pg/mL High 11-61 [facility] Comment on above: Performed By: #### L 506.0400, L501.9520, L3100.5400, L509.1000 #### [facility] [address] [place], [address] T4 Free Directon 11-11-2024 T4 FREE DIRECT 1.30 ng/dL Normal 0.76-1.46 [facility] Comment on above: Performed By: #### L 506.0400, L501.9520, L3100.5400, L509.1000 #### [facility] [address] [place], [address] Thyroid Stim Hormone (TSH)on 11-11-2024 TSH 0.013 uIU/mL Low 0.300-4.200 [facility] Comment on above: Performed By: #### L 506.0400, L501.9520, L3100.5400, L509.1000 #### [facility] [address] [place], [address] Amb Office-Progress Notes-Pr ovideron 11-10-2024 Amb Office-Progress Notes-Provider CAROLINA KIMBROUGH :1980 Registration Date:11/04/2024 Chief Complaint: office check up History of Present Illness: Disclaimer: The content of this note was generated by an artificial intelligence (AI) language model version 25.01.0.0 This is a follow-up visit for Mr. Kimbrough and he has repair of the bicuspid aortic valve and status post Hemashield aortic graft. He also has a history of M?ni?re's disease and hypothyroidism. The patient reports experiencing vertigo for the past month and a half, which he attributes to Meniere's disease. He describes the vertigo as a sensation of dizziness that has been persistent but has improved over the last two weeks. Approximately two weeks ago, patient presented to the emergency room with dizziness and lightheadedness and his workup was negative including a CT scan of the head. His EKG was normal. No conduction abnormalities. No ischemic changes. He denied any chest pain jaw pain shoulder pain. No shortness of breath. He has hypothyroidism and his thyroid function has been normal. His lipid profile has been stable. Patient seems to be very compliant with his diet and medications. His blood pressure is 124/76. . Physical Exam: Vitals & Measurements Temperature Temporal (F): 98.7 degF (11/04/24 13:18:00) Apical Heart Rate: 71 bpm (11/04/24 13:18:00) Height/Length Measured: 180 cm (11/04/24 13:18:00) Weight Measured: 79 kg (11/04/24 13:18:00) Body Mass Index Measured: 24.38 kg/m2 (11/04/24 13:18:00) Weight Measured - lbs2: 175 lb (11/04/24 13:18:00) Height/Length Measured - in2: 71 in (11/04/24 13:18:00) Body Mass Index Measured English2: 24.4 kg/m2 (11/04/24 13:18:00) BSA: 1.99 m2 (11/04/24 13:18:00) Ht/Wt Measurement Refused by Patient?2: No (11/04/24 13:18:00) Depression Screening Scores: Initial Depression Screen Score: 0 (11/04/24 13:18:00) Fall Risk Assessment: Is the patient ambulatory (mobile): Yes (11/04/24 13:18:00) Have you had a fall within the past: No (11/04/24 13:18:00) Have you had 2 or more falls in the past: No (11/04/24 13:18:00) NECK: JVP is not elevated: Good carotid pulses and no bruit CVS; Normal heart sounds. No murmur and no gallop. No rub LUNGS: No rhonchi and no wheeze: Clear breath sounds ADOMEN: Benign EXTREMITIES: Good distal pulses. No edema of legs Medication Reconciliation: What How Much When Instructions Unchanged acetaminophen (Tylenol Extra Strength 500 mg oral tablet) 2 Tabs Oral EVERY SIX HOURS as needed for as needed for pain Unchanged aspirin (Aspir-Low 81 mg oral delayed release tablet) 1 Tabs Oral DAILY Unchanged levothyroxine (Synthroid 175 mcg (0.175 mg) oral tablet) 1 Tabs Oral DAILY Unchanged magnesium oxide (magnesium oxide 400 mg oral tablet) 1 Tabs Oral TWICE A DAY Unchanged metoprolol (Toprol-XL 50 mg oral tablet, extended release) 1 Tabs Oral DAILY Assessment/Plan: This Visit Diagnosis 1. Status post ascending aortic replacement Z95.828 2. Status post bicuspid aortic valve repair 3. Hypothyroidism 4. M?ni?re's disease 5. Will get an echocardiogram to assess the aortic valve and ascending aorta 6. Continue current medications as listed and I will see him again in 1 year time Problem List/Past Medical History: Ongoing Acquired hypothyroidism Aortic stenosis Aortic valve regurgitation Bicuspid aortic valve Cochlear hydrops Dyspnea Heart murmur Hypothyroidism Impacted cerumen M?ni?re's disease Otitis media S/P AVR Thoracic aortic aneurysm without rupture Procedure/Surgical History: MINI AVR, REPAIR OF ASCENDING AORTA # 30 HEMASHEILD TUBE GRAFT.: 02/20/21 ASNDING AORTA GRAFT, W/CPB W/VALVE SPENSION: 02/20/21 AVR W/CARDIOPULMONARY BYPAS W/PROSTHETIC OTHER THAN HOMOGRAFT/STNTLESS TISSUE VALVE: 02/20/21 Transesophageal Echocardiogram.: 12/23/20 Allergies: No Known Allergies Social History: Alcohol Use:Current Other Name:caffine Substance Abuse - Denies Substance Abuse Tobacco Use:Never smoker Family History: Stroke..: Mother. Health Status Family Member(s) Family Member(s) Relationship: Mother, Age: 54 Years, Cause: stroke Care Team Primary Care Physician JAMES COUGHLIN [phone] Attending Physician RADU SCHMITT MD [phone] Normal [facility] PTH intactOrdered By: James chavarria on 11-10-2024 Parathyroid Hormone (Intact) 65 pg/mL High 11-61 [facility] Prolactin [Mass/Vol]Ordered By: James Coughlin on 11-10-2024 Prolactin 15.4 ng/mL 3.9-22.7 [facility] Comment on above: Performed at: [address] [id number] Director: Duncan Paris PhD, Phone: [phone] Provider Letter - Ambulatory on 11-10-2024 Provider Letter - Ambulatory JAMES COUGHLIN, [address] [place] [id number] RE: CAROLINA KIMBROUGH - 1980 11/04/2024 Dear JAMES COUGHLIN This document is confidential and intended solely for the use of the individual or entity to which they are addressed. If you are not the named addressee, please disregard and do not disseminate, distribute or copy this information. If you are not the intended recipient you are notified that any disclosure of this information and its contents are strictly prohibited. If you have any questions about this document, please contact the office. Sincerely, Geraldine Enriquez MA [facility] The following document(s) were included in the letter: November 04, 2024 20:05:00 EDT - (11/04/2024) *.AMB Office Visit Note Normal [facility] T4 freeOrdered By: James Laz cameron on 11-10-2024 Free T4 [Mass/Vol] 1.30 ng/dL 0.76-1.46 [facility] TSH DL <= 0.005 mIU/L QnOrde red By: James Coughlin on 11-10-2024 Thyroid Stimulating Hormone (TSH) 0.013 uIU/mL Low 0.300-4.200 [facility] CNCOon 10-19-2024 CNCO Letter Text Normal [facility] HEALTHon 10-18-2024 ALLIED HEALTH HNO ID: [id number] Author: IRISH JAMES RT(R) Service: Radiology Author Type: Technologist Type: Allied Health Filed: 10/18/2024 13:48 Note Text: Radiology Service Progress Note DATE OF SERVICE: October 18, 2024 TIME: 1:48 PM PATIENT IDENTITY VERIFICATION COMPLETED USING TWO (2) STANDARD IDENTIFIERS: Name and Date of confirmed by patient verbally. FALL SCREENING: Has the patient had 2 falls in the last year or 1 fall with injury or currently using an Ambulatory Assistive Device (Walker, Cane, Wheelchair, Crutches, etc.)? Emergency Room Patient: Screened in ED PATIENT GENDER DATA: Assigned male at PATIENT RELEVANT IMPLANT DATA REVIEWED: Not Applicable PATIENT PRESENTS WITH AN IMPLANTABLE OR ATTACHED SCHOLARSHIP COUNSELOR: No ALLERGIES: Reviewed and unchanged CONTRAST ALLERGY: NO. EXAM: CT -CONTRAST INDUCED NEPHROPATHY RISK FACTORS: Not applicable CREATININE: Creatinine Date Value Ref Range Status 10/18/2024 1.00 0.73 - 1.22 mg/dL Final 03/01/2021 1.04 0.73 - 1.22 mg/dL Final 02/24/2021 0.96 0.73 - 1.22 mg/dL Final Estimated Glomerular Filtration Rate Date Value Ref Range Status 10/18/2024 94 >=60 mL/min/1.73m? Final Comment: Estimated Glomerular Filtration Rate (eGFR) is calculated using the 2020 CKD-EPI creatinine equation. This equation utilizes serum creatinine, sex, and age as parameters. The creatinine assay has traceable calibration to isotope dilution-mass spectrometry. Refer to KDIGO guidelines for clinical interpretation. In patients with unstable renal function, e.g. those with acute kidney injury, the eGFR may not accurately reflect actual GFR. eGFR- Date Value Ref Range Status 03/01/2021 >60 Final P.O.C.T. RESULTS: POC done: Yes, See Lab Tab October 18, 2024 TREATMENT: N/A PERIPHERAL IV DATA: Inpatient - refer to LDA documentation RADIOLOGY DEPARTMENT: CT; Exam(s) Completed: Brain , CTA Abdomen Pelvis, CTA Brain , and CTA Chest SIGNATURE: Irish James, RT(R) PATIENT NAME: Carolina Kimbrough DATE: October 18, 2024 TIME: 1:48 PM Normal [facility] Basic metabolic 2000 panelon 10-18-2024 Anion gap [Moles/Vol] 12 mmol/L Normal 8-15 [facility] Comment on above: Order Comment: Peewee coon Type: BLOOD SPECIMEN Ordering Facility: [facility] Address: [address] [place] [address] Performed By: #### T [facility] , #### [facility] CLIA [id number] [address] [place] [address] #### 3024-7 #### [facility] CLIA [id number] [address] [facility] OF [facility] Calcium [Mass/Vol] 9.0 mg/dL Normal 8.5-10.2 [facility] Comment on above: Order Comment: Peewee coon Type: BLOOD SPECIMEN Ordering Facility: [facility] Address: [address] [place] [address] Performed By: #### T [facility] , #### [facility] CLIA [id number] [address] [place] [address] OF [place] #### 3024-7 #### [facility] CLIA [id number] [address] [place] Chloride [Moles/Vol] 105 mmol/L Normal 98-107 [facility] Comment on above: Order Comment: Michellei jaymie Type: BLOOD SPECIMEN Ordering Facility: [facility] Address: [address] [place] [address] Performed By: #### T HUYEN, 12263-0, #### [facility] CLIA [id number] [address] [place] [address] #### 3024-7 #### [facility] CLIA [id number] [address] CO2 [Moles/Vol] 24 mmol/L Normal 22-30 [facility] Comment on above: Order Comment: Speci men Type: BLOOD SPECIMEN Ordering Facility: [facility] Address: [address] [place] [address] Performed By: #### T HUYEN, 02705-5, #### [facility] CLIA [id number] [address] [place] [address] #### 3024-7 #### [facility] CLIA [id number] [address] [place] [address] Creatinine [Mass/Vol] 1.00 mg/dL Normal 0.73-1.22 [facility] Comment on above: Order Comment: Speci men Type: BLOOD SPECIMEN Ordering Facility: [facility] Address: [address] [place] [address] Performed By: #### T HUYEN, 55496-2, #### [facility] CLIA [id number] [address] [place] [address] #### 3024-7 #### [facility] CLIA [id number] [address] [place] [address] Creatinine and Glomerular filtration rate.predicted panel (S/P/Bld) 94 mL/min/1.73m??? Normal >=60 [facility] Comment on above: Order Comment: Speci men Type: BLOOD SPECIMEN Ordering Facility: [facility] Address: [address] [place] [address] Result Comment: Sheyla mated Glomerular Filtration Rate (eGFR) is calculated using the 2020 CKD-EPI creatinine equation. This equation utilizes serum creatinine, sex, and age as parameters. The creatinine assay has traceable calibration to isotope dilution-mass spectrometry. Refer to KDIGO guidelines for clinical interpretation. In patients with unstable renal function, e.g. those with acute kidney injury, the eGFR may not accurately reflect actual GFR. Performed By: #### T [facility], 13641-1, #### [facility] CLIA [id number] [address] [place] [id number] [place] [address] OF [place] #### 3024-7 #### [facility] CLIA [id number] [address] [place] [address] [place] Glucose [Mass/Vol] 99 mg/dL Normal 74-99 [facility] Comment on above: Order Comment: Peewee coon Type: BLOOD SPECIMEN Ordering Facility: [facility] Address: [address] [place] [address] Result Comment: The [place] Diabetes Association (ADA) provides guidance for cutoff values for fasting glucose and random glucose. The ADA defines fasting as no caloric intake for at least 8 hours. Fasting plasma glucose results between 100 to 125 mg/dL indicate increased risk for diabetes (prediabetes). Fasting plasma glucose results greater than or equal to 126 mg/dL meet the criteria for diagnosis of diabetes. In the absence of unequivocal hyperglycemia, results should be confirmed by repeat testing. In a patient with classic symptoms of hyperglycemia or hyperglycemic crisis, random plasma glucose results greater than or equal to 200 mg/dL meet the criteria for diagnosis of diabetes. Reference: Standards of Medical Care in Diabetes 2016, [place] [employer] Association. Diabetes Care. 2016.39(Suppl 1). Performed By: #### T [facility], 34208-8, #### [facility] CLIA [id number] [address] [place] [address] [facility] [place] #### 3024-7 #### [facility] CLIA [id number] [address] [place] Potassium [Moles/Vol] 3.9 mmol/L Normal 3.7-5.1 [facility] Comment on above: Order Comment: Peewee coon Type: BLOOD SPECIMEN Ordering Facility: [facility] Address: [address] [place] [address] Performed By: #### T BO, , #### [facility] CLIA [id number] [address] [place] [address] #### 3024-7 #### [facility] CLIA [id number] [address] [place] [address] Sodium [Moles/Vol] 141 mmol/L Normal 136-144 [facility] Comment on above: Order Comment: Speci men Type: BLOOD SPECIMEN Ordering Facility: [facility] Address: [address] [place] [address] Performed By: #### T BO, , #### [facility] CLIA [id number] [address] [place] [address] #### 3024-7 #### [facility] CLIA [id number] [address] [place] [address] Urea nitrogen [Mass/Vol] 12 mg/dL Normal 9-24 [facility] Comment on above: Order Comment: Speci men Type: BLOOD SPECIMEN Ordering Facility: [facility] Address: [facility] [place] [address] Performed By: #### T BO, , #### [facility] CLIA [id number] [address] [place] [address] #### 3024-7 #### [facility] CLIA [id number] [address] [place] [address] CBC panel Auto (Bld)on 10-18 Erythrocyte distribution width (RBC) [Ratio] 12.3 % Normal 11.5-15.0 [facility] Comment on above: Order Comment: Speci men Type: BLOOD SPECIMEN Ordering Facility: [facility] Address: [address] [place] [address] Performed By: #### 5 8410-2 #### [facility] CLIA [id number] [address] [place] [address] [place] Hematocrit (Bld) [Volume fraction] 42.3 % Normal 39.0-51.0 [facility] Comment on above: Order Comment: Speci men Type: BLOOD SPECIMEN Ordering Facility: [facility] Address: [address] [place] [address] Performed By: #### 5 8410-2 #### [facility] CLIA [id number] [address] [place] [address] [facility] [place] Hemoglobin (Bld) [Mass/Vol] 14.9 g/dL Normal 13.0-17.0 [facility] Comment on above: Order Comment: Speci men Type: BLOOD SPECIMEN Ordering Facility: [facility] Address: [address] [place] [address] Performed By: #### 5 8410-2 #### [facility] CLIA [id number] [address] [facility] MCH (RBC) [Entitic mass] 30.2 pg Normal 26.0-34.0 [facility] Comment on above: Order Comment: Speci men Type: BLOOD SPECIMEN Ordering Facility: [facility] Address: [address] [place] [address] Performed By: #### 5 8410-2 #### [facility] CLIA [id number] [address] [place] [address] [place] MCHC (RBC) [Mass/Vol] 35.2 g/dL Normal 30.5-36.0 [facility] Comment on above: Order Comment: Speci men Type: BLOOD SPECIMEN Ordering Facility: [facility] Address: [address] [place] [address] Performed By: #### 5 8410-2 #### [facility] CLIA [id number] [address] [place] [address] [facility] [place] MCV (RBC) [Entitic vol] 85.8 fL Normal 80.0-100.0 [facility] Comment on above: Order Comment: Speci men Type: BLOOD SPECIMEN Ordering Facility: [facility] Address: [address] [place] [address] Performed By: #### 5 8410-2 #### [facility] CLIA [id number] [address] [place] [address] [place] Platelet mean volume (Bld) [Entitic vol] 10.0 fL Normal 9.0-12.7 [facility] Comment on above: Order Comment: Speci men Type: BLOOD SPECIMEN Ordering Facility: [facility] Address: [address] [place] [address] Performed By: #### 5 8410-2 #### [facility] CLIA [id number] [address] [place] [address] [place] Platelets (Bld) [#/Vol] 223 10*3/uL Normal 150-400 [facility] Comment on above: Order Comment: Speci men Type: BLOOD SPECIMEN Ordering Facility: [facility] Address: [address] [place] [address] Performed By: #### 5 8410-2 #### [facility] CLIA [id number] [address] [place] [address] [place] RBC (Bld) [#/Vol] 4.93 10*6/uL Normal 4.20-6.00 [facility] Comment on above: Order Comment: Speci men Type: BLOOD SPECIMEN Ordering Facility: [facility] Address: [address] [place] [address] Performed By: #### 5 8410-2 #### [facility] CLIA [id number] [address] [place] [address] [place] WBC (Bld) [#/Vol] 5.51 10*3/uL Normal 3.70-11.00 [facility] Comment on above: Order Comment: Speci men Type: BLOOD SPECIMEN Ordering Facility: [facility] Address: [address] [place] [address] Performed By: #### 5 8410-2 #### [facility] CLIA [id number] [address] [place] [address] [place] [facility] CTA ABD/PELV W IVCONon 10-18 CTA ABD/PELV W IVCON * * *Final Report* * * DATE OF EXAM: Oct 18 2024 1:47PM [facility] 0311 - CTA ABD/PELV W IVCON / PROCEDURE REASON: Aortic dissection suspected * * * * Physician Interpretation * * * * EXAM TITLE: CTA CHEST (NONGATED) W IVCON, CTA ABD/PELV W IVCON DATE: 10/18/2024 COMPARISON: Previous CT chest dated 03/17/2021, CTA chest from 02/23/2021 CLINICAL INDICATION/HISTORY: 44-year-old male with history of aortic graft and bicuspid aortic valve presents with dizziness and pain TECHNIQUE: Initially, unenhanced imaging was performed through the chest. Then, CT angiography of the thoracic and abdominal aorta was performed with IV contrast. Imaging included the entire chest, abdomen and pelvis. Axial, coronal and MIP reconstruction images were generated. CT Radiation dose: Integrated Dose-length product (DLP) for this visit = 517.94 (both CTA Chest w IVCON and CTA Abd/Pelvis w IVCON exams) mGy*cm. CT Dose Reduction Employed: Automated exposure control(AEC) and iterative recon IV contrast: 100 mL Omnipaque 350 FINDINGS: CTA: As seen previously, a surgical graft is present at the ascending thoracic aorta. The aortic root is similar in size, measuring approximately 3.7 cm in AP orientation. There is dilatation of the distal ascending thoracic aorta near the junction with the arch, just distal to the surgical graft. This measures approximately 3.7 cm which is 3.3 cm on the previous study from nearly 4 years ago. There is no dissection. No contrast leak. There is a normal appearance of the arch vessels. The descending thoracic aorta is normal in course and caliber. No dissection. The abdominal aorta is normal in course and caliber without dissection. No significant atherosclerosis is identified. The celiac axis is widely patent. As seen on axial images 144 through 147 of series 10 and on sagittal reconstruction image 90 of series 605, there is a vertically oriented linear filling defect within the SMA approximately 2.5 cm from its origin. While this may simply represent pulsation artifact, a short segment dissection cannot be ruled out on this exam and follow-up is indicated. There are 2 right and 3 left renal arteries, all of which appear patent. Iliac vasculature appears unremarkable. CHEST: Imaging through the thorax without contrast shows no findings concerning for intramural hematoma. 4 mm right middle lobe nodule on axial image 74 of series 3 is new since 2020. There are a couple of stable subpleural right lung nodules. Tiny stable posterior left apical nodule, unchanged. No pneumonia or endobronchial lesion. There is no pleural effusion. No lymphadenopathy. Infiltration of the prevascular fat is likely related to the prior surgery and was present previously. Cardiac size is normal. No obvious cardiac chamber filling defect. No central pulmonary embolism. No acute bony abnormality. Status post sternotomy. ABDOMEN: No hepatic abnormality. No bile duct dilatation. Gallbladder shows no cholelithiasis. Borderline enlarged spleen measuring approximately 13.6 cm craniocaudal. Normal pancreas and adrenal glands. The kidneys appear unremarkable without obvious mass or hydronephrosis. No bowel dilatation or wall thickening. Normal appendix. No lymphadenopathy or free fluid. Hepatic and portal veins grossly appear patent although are not optimally opacified. No acute bony abnormality. PELVIS: No mass, free fluid or lymphadenopathy. IMPRESSION: CTA- 1. Again noted is a surgical graft at the ascending thoracic aorta. 2. There is no dissection. 3. Mild dilatation of the distal ascending thoracic aorta, slightly increased relative to the prior study. 4. Relatively small linear intraluminal filling defect within the SMA. Although possibly related to artifact (such as pulsation artifact), a short segment dissection cannot be excluded. Consider vascular surgery consultation and short-term follow-up CTA for reassessment. Chest, abdomen and pelvis- 1. No acute abnormality. 2. There is a new 4 mm right middle lobe nodule. A 12 month follow-up study should be performed if the patient is considered high risk for carcinoma. 3. There may be mild splenomegaly, measuring 13.6 cm. Incidental Finding: Follow-up Acuity: Incidental Finding: Solid: <6 mm (solitary or multiple) Routing Code: N/A Recommendation: No imaging follow-up is recommended Time Frame: N/A Comments: If there are risk factors for lung malignancy, a follow-up chest CT exam could be obtained in 12 months --END OF FINDING-- COMMUNICATION:? Results will be communicated with the ordering provider via [email or web address] staff message by [employer] within 2 business days of report finalization. Music Educator: MAC Transcribe Date/Time: Oct 18 2024 2:37P Dictated by : GEORGE SCHNEIDER MD This examination was interpreted and the report reviewed and electronically signed by: DO (more content not included)... Invalid Interpretation Code [facility] CTA CHEST (NONGATED) W IVCON on 10-18-2024 CTA CHEST (NONGATED) W IVCON * * *Final Report* * * DATE OF EXAM: Oct 18 2024 1:46PM [facility] 0123 - CTA CHEST (NONGATED) W IVCON / PROCEDURE REASON: Aortic dissection suspected * * * * Physician Interpretation * * * * EXAM TITLE: CTA CHEST (NONGATED) W IVCON, CTA ABD/PELV W IVCON DATE: 10/18/2024 COMPARISON: Previous CT chest dated 03/17/2021, CTA chest from 02/23/2021 CLINICAL INDICATION/HISTORY: 44-year-old male with history of aortic graft and bicuspid aortic valve presents with dizziness and pain TECHNIQUE: Initially, unenhanced imaging was performed through the chest. Then, CT angiography of the thoracic and abdominal aorta was performed with IV contrast. Imaging included the entire chest, abdomen and pelvis. Axial, coronal and MIP reconstruction images were generated. CT Radiation dose: Integrated Dose-length product (DLP) for this visit = 517.94 (both CTA Chest w IVCON and CTA Abd/Pelvis w IVCON exams) mGy*cm. CT Dose Reduction Employed: Automated exposure control(AEC) and iterative recon IV contrast: 100 mL Omnipaque 350 FINDINGS: CTA: As seen previously, a surgical graft is present at the ascending thoracic aorta. The aortic root is similar in size, measuring approximately 3.7 cm in AP orientation. There is dilatation of the distal ascending thoracic aorta near the junction with the arch, just distal to the surgical graft. This measures approximately 3.7 cm which is 3.3 cm on the previous study from nearly 4 years ago. There is no dissection. No contrast leak. There is a normal appearance of the arch vessels. The descending thoracic aorta is normal in course and caliber. No dissection. The abdominal aorta is normal in course and caliber without dissection. No significant atherosclerosis is identified. The celiac axis is widely patent. As seen on axial images 144 through 147 of series 10 and on sagittal reconstruction image 90 of series 605, there is a vertically oriented linear filling defect within the SMA approximately 2.5 cm from its origin. While this may simply represent pulsation artifact, a short segment dissection cannot be ruled out on this exam and follow-up is indicated. There are 2 right and 3 left renal arteries, all of which appear patent. Iliac vasculature appears unremarkable. CHEST: Imaging through the thorax without contrast shows no findings concerning for intramural hematoma. 4 mm right middle lobe nodule on axial image 74 of series 3 is new since 2020. There are a couple of stable subpleural right lung nodules. Tiny stable posterior left apical nodule, unchanged. No pneumonia or endobronchial lesion. There is no pleural effusion. No lymphadenopathy. Infiltration of the prevascular fat is likely related to the prior surgery and was present previously. Cardiac size is normal. No obvious cardiac chamber filling defect. No central pulmonary embolism. No acute bony abnormality. Status post sternotomy. ABDOMEN: No hepatic abnormality. No bile duct dilatation. Gallbladder shows no cholelithiasis. Borderline enlarged spleen measuring approximately 13.6 cm craniocaudal. Normal pancreas and adrenal glands. The kidneys appear unremarkable without obvious mass or hydronephrosis. No bowel dilatation or wall thickening. Normal appendix. No lymphadenopathy or free fluid. Hepatic and portal veins grossly appear patent although are not optimally opacified. No acute bony abnormality. PELVIS: No mass, free fluid or lymphadenopathy. IMPRESSION: CTA- 1. Again noted is a surgical graft at the ascending thoracic aorta. 2. There is no dissection. 3. Mild dilatation of the distal ascending thoracic aorta, slightly increased relative to the prior study. 4. Relatively small linear intraluminal filling defect within the SMA. Although possibly related to artifact (such as pulsation artifact), a short segment dissection cannot be excluded. Consider vascular surgery consultation and short-term follow-up CTA for reassessment. Chest, abdomen and pelvis- 1. No acute abnormality. 2. There is a new 4 mm right middle lobe nodule. A 12 month follow-up study should be performed if the patient is considered high risk for carcinoma. 3. There may be mild splenomegaly, measuring 13.6 cm. Incidental Finding: Follow-up Acuity: Incidental Finding: Solid: <6 mm (solitary or multiple) Routing Code: N/A Recommendation: No imaging follow-up is recommended Time Frame: N/A Comments: If there are risk factors for lung malignancy, a follow-up chest CT exam could be obtained in 12 months --END OF FINDING-- COMMUNICATION:? Results will be communicated with the ordering provider via [email or web address] staff message by [facility] within 2 business days of report finalization. Music Educator: MAC Transcribe Date/Time: Oct 18 2024 2:37P Dictated by : GEORGE SCHNEIDER MD This examination was interpreted and the report reviewed and electronically signed (more content not included)... Invalid Interpretation Code [facility] CTA HEAD WO/W IVCONon 2024 CTA HEAD WO/W IVCON * * *Final Report* * * DATE OF EXAM: Oct 18 2024 1:34PM [facility] 0023 - CTA HEAD WO/W IVCON / PROCEDURE REASON: Dizziness, non-specific * * * * Physician Interpretation * * * * EXAMINATION: CTA HEAD WO/W IVCON HISTORY: Hx of aortic graft and bicuspid aorta TECHNIQUE: Routine CT of the brain without IV contrast. Next, spiral high resolution axial images were obtained through the head following bolus administration of intravenous contrast for CT angiography. 3D maximum intensity projection images were created, reviewed and archived . MQ: [id number]_[id number] Contrast: 100 mL Omnipaque [address] Radiation dose: Integrated Dose-Length Product (DLP) for this visit = 1786.82 mGy*cm. CT Dose Reduction Employed: No dose reduction techniques were required COMPARISON: None. RESULT: Acute change: No evidence of an acute infarct or other acute parenchymal process. ASPECT Score = 10 Hemorrhage: No evidence of acute intracranial hemorrhage. ECASS hemorrhagic transformation score: Not Applicable Mass Effect / Mass Lesion: There is no evidence of an intracranial mass or extra-axial fluid collection. No significant mass effect. Chronic change: None apparent. Parenchyma: There is no significant volume loss. The brain parenchyma is otherwise within normal limits for age. Ventricles: The ventricles are within normal limits of size and configuration for age. Other: The visualized paranasal sinuses are grossly clear. The skull and visualized extracranial soft tissues are grossly normal. ARTERIOGRAM: Acute Stroke on CTA: Evaluation of the individual slices of the CTA demonstrates no evidence of an acute stroke. Anterior Circulation: Bilateral distal ICAs, proximal MCAs, and proximal ACAs appear widely patent. ACAs are codominant. There is a patent anterior communicating artery. Vertebrobasilar Circulation: Bilateral distal vertebral arteries, proximal PICAs, basilar artery, proximal bilateral SCAs, and proximal bilateral metal fitter appear widely patent. origin right WAX BLEACHER with a mildly hypoplastic right P1 segment, normal anatomic variant No evidence of intracranial aneurysm. Pediatrician (topogram) images: No additional findings. IMPRESSION: No CT evidence of acute intracranial process or mass effect. Normal intracranial CTA. No evidence of aneurysm Arterial blood flow was measured to detect acute large vessel occlusion by computer aided detection software: Not Performed. Concordance between software and imaging review: Not Applicable. Music Educator: PSCJos Transcribe Date/Time: Oct 18 2024 1:35P Dictated by : KISHA LYN MD This examination was interpreted and the report reviewed and electronically signed by: KISHA LYN MD on Oct 18 2024 1:43PM EST [id number] ACN Normal [facility] ECG COMPLETEon 10-18-2024 ECG COMPLETE Ventricular Rate : 67 BPM Atrial Rate : 67 BPM P-R Interval : 164 ms QRS Duration : 96 ms Q-T Interval : 374 ms QTC Calculation(Bazett) : 395 ms Calculated P [place]on : 50 degrees Calculated R [place] : 35 degrees Calculated T [place] : 62 degrees NORMAL SINUS RHYTHM WITH SINUS ARRHYTHMIA MINIMAL VOLTAGE CRITERIA FOR LVH, MAY BE NORMAL VARIANT ( [place] product ) BORDERLINE ECG NO PREVIOUS ECGS AVAILABLE Confirmed by MD WILKINSON VINAYAK ([id number]) on 10/21/2024 4:18:43 PM NAME : CAROLINA KIMBROUGH PID : [id number] : 1980 Gender : Male Race : ORD : [id number] Procedure Date : Oct 18 2024 11:07:21 Edit Date : Oct 21 2024 16:18:44 Diagnosis: NORMAL SINUS RHYTHM WITH SINUS ARRHYTHMIA MINIMAL VOLTAGE CRITERIA FOR LVH, MAY BE NORMAL VARIANT ( Berthoud product ) BORDERLINE ECG NO PREVIOUS ECGS AVAILABLE Confirmed by MD WILKINSON VINAYAK ([id number]) on 10/21/2024 4:18:43 PM Test Reason : Chest Pain Location : 191 : LDCARD 10 Overread By : MD WILKINSON VINAYAK Edited By : MD WILKINSON VINAYAK Referred By : Aung Acquired by : BABS OLIVA [facility] ED NOTEon 10-18-2024 ED NOTE HNO ID: [id number] Author: COYNE, DANIA, RN Service: ? Author Type: Registered Nurse Type: ED Notes Filed: 10/18/2024 16:05 Note Text: D/c instructions reviewed with pt who verbalized understanding. Pt's vss and left ED ual and in stable condition. Normal [facility] ED NOTE HNO ID: [id number] Author: DANIA COYNE RN Service: ? Author Type: Registered Nurse Type: ED Notes Filed: 10/18/2024 11:06 Note Text: Pt comes to ED c/o pins and needles with pressure to the top of his head and radiates down to the base of his neck that started today at 0845. Pt also has dizziness that comes and goes. Pt has had the intermittent dizziness for 2 weeks but the pins and needles feeling was more persistent today which brought him in. He also states it was hard to lift his head and felt heavy. He is AANDOx3, vss. Will continue to monitor. Normal [facility] ED PROV NOTEon 10-18-2024 ED PROV NOTE HNO ID: [id number] Author: MATIAS RAMIREZ MD Service: Emergency Medicine Author Type: Physician Type: ED Provider Notes Filed: 10/18/2024 16:09 Note Text: ED Provider Note Patient Name: Carolina Kimbrough : 1980 SERVICE DATE: 10/18/24 History Patient presents with: Numbness Dizziness Carolina Kimbrough is a 44 year old male with history of Meniere's disease and thoracic aortic graft and aortic valve repair 4 years ago who presents with dizziness. The dizziness is described as room-spinning sensation . The patient did not fall. The patient has taken nothing at home without relief. - Symptoms began: 2 weeks prior to arrival - Severity: moderate - Dizziness exacerbated with movement. - Dizziness is not exacerbated with closing eyes. - Symptoms are associated with today's head felt heavy and he had tingling sensation on the left side of his scalp. - Symptoms are not associated with blurry vision. - Improved by nothing. - Not improved by rest Patient has a history of Meniere's disease he said he has some discomfort in his right ear today he has had what he feels to be vertigo symptoms for the past 2 weeks but they got worse today and today he had new symptoms of head feeling heavy and tingling on the left side of the head no other neurologic complaints. History of thoracic aortic aneurysm and unicuspid aortic valve. He had aortic grafting and a valvuloplasty of the aortic valve changing her from a unicuspid to a bicuspid valve.. PAST MEDICAL HISTORY Diagnosis Date Aortic stenosis Bicuspid aortic valve Hypothyroidism Meniere's syndrome Thoracic aortic aneurysm without rupture (HCC) 01/10/2021 enlargement of the ascending segment (5.4 cm in PAST SURGICAL HISTORY Procedure Laterality Date REFRACTIVE SURGERY OD (RIGHT EYE) Bilateral 05/07/2006 FAMILY HISTORY Problem Relation Age of Onset Stroke Mother age 52 No Known Problems Father alive age 67 No Known Problems Child daughter 13 y o well No Ocular Disease No Family History Social History Tobacco Use Smoking status: Never Smokeless tobacco: Never Vaping Use Vaping status: Never Used Substance and Sexual Activity Alcohol use: Not Currently Comment: 3-4 beers one weekday and just weekend Drug use: Yes Frequency: 3.0 times per week Types: Marijuana Comment: marijuanna 3 x per week Sexual activity: Not on file ALLERGIES No Known Allergies Review of Systems Constitutional: Negative for chills and fever. HENT: Positive for ear pain. Negative for congestion, sore throat and trouble swallowing. Eyes: Negative for photophobia and visual disturbance. Cardiovascular: Negative for chest pain and palpitations. Gastrointestinal: Positive for nausea. Negative for vomiting. Nausea initially when this started 2 weeks ago but none now Musculoskeletal: Negative for back pain and neck pain. Skin: Negative for rash and wound. Allergic/Immunologi c: Negative for environmental allergies, food allergies and immunocompromised state. Neurological: Positive for dizziness. Negative for syncope and light-headedness. Psychiatric/Behavio ral: Negative for confusion. The patient is nervous/anxious. Patient is anxious about symptoms being secondary to stroke Physical Exam Vitals [10/18/24 1057] BP Pulse Temp Temp src Resp SpO2 Weight Height 147/80 67 (!) 35.7 ?C (96.2 ?F) Temporal 20 98 % 78.9 kg (173 lb 14.4 oz) -- Physical Exam Vitals and nursing note reviewed. Constitutional: General: He is not in acute distress. Appearance: Normal appearance. He is not ill-appearing, toxic-appearing or diaphoretic. HENT: Right Ear: Tympanic membrane normal. Left Ear: Tympanic membrane normal. Nose: No congestion or rhinorrhea. Eyes: General: No scleral icterus. Right eye: No discharge. Left eye: No discharge. Extraocular Movements: Extraocular movements intact. Pupils: Pupils are equal, round, and reactive to light. Cardiovascular: Rate and Rhythm: Normal rate and regular rhythm. Pulmonary: Effort: Pulmonary effort is normal. No respiratory distress. Musculoskeletal: General: No swelling. Normal range of motion. Cervical back: Normal range of motion and neck supple. No tenderness. Skin: General: Skin is warm and dry. Capillary Refill: Capillary refill takes less than 2 seconds. Findings: No rash. Neurological: General: No focal deficit present. Mental Status: He is oriented to person, place, and time. Psychiatric: Mood and Affect: Mood normal. Behavior: Behavior normal. Thought Content: Thought content normal. Judgment: Judgment normal. Diagnostic Testing ED Labs Ordered and Reviewed - No data to display Procedures ED Course / Clinical Impression Clinical Impressions as of 10/18/24 1603 Vertigo MDM / Disposition / Plan Patient states about 2 weeks ago symptoms started and he felt they were mostly consistent with what he is (more content not included)... Normal [facility] HIGH SENSITIVITY TROPONIN To n 10-18-2024 Troponin T.cardiac High sensitivity method [Mass/Vol] 9 ng/L Normal <12 [facility] Comment on above: Order Comment: Peewee coon Type: BLOOD SPECIMEN Ordering Facility: [facility] Address: [address] [place] [address] Performed By: #### H STNT #### [facility] CLIA [id number] [address] [place] [address] [place] Magnesium SerPl-mCncon 10-18 Magnesium [Mass/Vol] 1.9 mg/dL Normal 1.7-2.3 [facility] Comment on above: Order Comment: Peewee coon Type: BLOOD SPECIMEN Ordering Facility: [facility] Address: [address] [place] [address] Performed By: #### T [facility], 37901-2, 24089-3 #### [facility] CLIA [id number] [address] [place] [address] [place] #### 3024-7 #### [facility] CLIA [id number] [address] T4 Free SerPl-mCncon 025 Free T4 [Mass/Vol] 1.6 ng/dL Normal 0.9-1.7 [facility] Comment on above: Order Comment: Speci men Type: BLOOD SPECIMEN Ordering Facility: [facility] Address: [address] [place] [address] Performed By: #### [place], [address]-9, #### [facility] CLIA [id number] [address] [place] [address] #### 3024-7 #### [facility] CLIA [id number] [address] TSH W/REFLEX FT4on 5 TSH Qn 0.036 m[IU]/L Low 0.270-4.200 [facility] Comment on above: Order Comment: Speci men Type: BLOOD SPECIMEN Ordering Facility: [facility] Address: [address] [place] [address] Performed By: #### Mars SORIANO, 1977[address]-0, #### [facility] CLIA [id number] [address] [place] [address] #### 3024-7 #### [facility] CLIA [id number] [address] CBC W/Diff, Automatedon 02-0 Absolute Lymph 2.26 X10 3/uL Normal 0.83-4.51 [facility] Comment on above: Performed By: #### L 501.9520, L100.0100, L500.4050 #### [facility] [address] [place], [address] Absolute Neut 6.0 X10 3/uL Normal 2.0-7.7 [facility] Comment on above: Performed By: #### L 501.9520, L100.0100, L500.4050 #### [facility] [address] [place], [address] Basophils/100 WBC (Bld) 0.3 % Normal 0-1 [facility] Comment on above: Performed By: #### L 501.9520, L100.0100, L500.4050 #### [facility] [address] [place], [address] Eosinophils/100 WBC (Bld) 0.1 % Normal 0-5 [facility] Comment on above: Performed By: #### L 501.9520, L100.0100, L500.4050 #### [facility] [address] [place], [address] Erythrocyte distribution width (RBC) [Ratio] 12.9 % Normal 11.6-14.6 [facility] Comment on above: Performed By: #### L 501.9520, L100.0100, L500.4050 #### [facility] [address] [place], [address] Hematocrit (Bld) [Volume fraction] 40.7 % Normal 40-54 [facility] Comment on above: Performed By: #### L 501.9520, L100.0100, L500.4050 #### [facility] [address] [place], [address] Hemoglobin (Bld) [Mass/Vol] 14.1 g/dL Normal 13.0-16.5 [facility] Comment on above: Performed By: #### L 501.9520, L100.0100, L500.4050 #### [facility] [address] [place], [address] IG% 0.300 Normal 0.0-0.9 [facility] Comment on above: Result Comment: IG% - Immature Granulocytes (promyelocytes, myelocytes and metamyelocytes) > 1% indicates that a LEFT SHIFT is Present. Performed By: #### L 501.9520, L100.0100, L500.4050 #### [facility] [address] [place], [address] Lymphocytes/100 WBC (Bld) 25.8 % Normal 19-41 [facility] Comment on above: Performed By: #### L 501.9520, L100.0100, L500.4050 #### [facility] [address] [place], [address] MCH (RBC) [Entitic mass] 30.3 pg Normal 27.0-32.0 [facility] Comment on above: Performed By: #### L 501.9520, L100.0100, L500.4050 #### [facility] [address] [place], [address] MCHC (RBC) [Mass/Vol] 34.6 g/dL Normal 32-36 [facility] Comment on above: Performed By: #### L 501.9520, L100.0100, L500.4050 #### [facility] [address] [place], [address] MCV (RBC) [Entitic vol] 87.5 fL Normal 80-94 [facility] Comment on above: Performed By: #### L 501.9520, L100.0100, L500.4050 #### [facility] [address] [place], [address] Monocytes/100 WBC (Bld) 5.5 % Normal 0-10 [facility] Comment on above: Performed By: #### L 501.9520, L100.0100, L500.4050 #### [facility] [address] [place], [address] Neutrophils/100 WBC (Bld) 68.0 % Normal 47-70 [facility] Comment on above: Performed By: #### L 501.9520, L100.0100, L500.4050 #### [facility] [address] [place], [address] Nucleated RBC (Bld) [#/Vol] 0 10*3/uL Normal 0-5 [facility] Comment on above: Performed By: #### L 501.9520, L100.0100, L500.4050 #### [facility] [address] [place], [address] Platelet mean volume (Bld) [Entitic vol] 10.8 fL Normal 6.2-12.0 [facility] Comment on above: Performed By: #### L 501.9520, L100.0100, L500.4050 #### [facility] [address] [place], [address] Platelets (Bld) [#/Vol] 232 10*3/uL Normal 150-450 [facility] Comment on above: Performed By: #### L 501.9520, L100.0100, L500.4050 #### [facility] [address] [place], [address] RBC (Bld) [#/Vol] 4.65 10*6/uL Normal 4.6-6.2 [facility] Comment on above: Performed By: #### L 501.9520, L100.0100, L500.4050 #### [facility] [address] [place], [address] RDW SD 41.1 fl Normal 35.1-43.9 [facility] Comment on above: Performed By: #### L 501.9520, L100.0100, [id number] #### [facility] [address] [place], [address] WBC (Bld) [#/Vol] 8.8 10*3/uL Normal 4.4-11.0 [facility] Comment on above: Performed By: #### L 501.9520, L100.0100, L500.4050 #### [facility] [address] [place], [address] Comprehensive Metabolic Prof ilon 09-15-2024 Albumin [Mass/Vol] 4.0 g/dL Normal 3.2-5.0 [facility] Comment on above: Performed By: #### L 501.9520, L100.0100, [id number] #### [facility] [address] [place], [address] Albumin/Globulin [Mass ratio] 1.2 {ratio} Normal 0.9-2.4 [facility] Comment on above: Performed By: #### L 501.9520, L100.0100, L500.4050 #### [facility] [address] [place], [address] ALK P 109 U/L Normal 45-117 [facility] Comment on above: Performed By: #### L 501.9520, L100.0100, [id number] #### [facility] [address] [place], [address] ALT [Catalytic activity/Vol] 26 U/L Normal 16-61 [facility] Comment on above: Performed By: #### L 501.9520, L100.0100, [id number] #### [facility] [address] [place], [address] AST [Catalytic activity/Vol] 20 U/L Normal 15-37 [facility] Comment on above: Performed By: #### L 501.9520, L100.0100, [id number] #### [facility] [address] [place], [address] Bilirubin [Mass/Vol] 0.40 mg/dL Normal 0.20-1.00 [facility] Comment on above: Result Comment: For patients on eltrombopag therapy, use of Dimension [place] TBIL is not recommended. Performed By: #### L 501.9520, L100.0100, L500.4050 #### [facility] [address] [place], [address] BUN/CRE 10.7 RATIO Normal 10-20 [facility] Comment on above: Performed By: #### L 501.9520, L100.0100, [id number] #### [facility] [address] [place], [address] CA,Total 8.9 mg/dL Normal 8.5-10.1 [facility] Comment on above: Performed By: #### L 501.9520, L100.0100, [id number] #### [facility] [address] [place], [address] Chloride [Moles/Vol] 106 mmol/L Normal 98-107 [facility] Comment on above: Performed By: #### L 501.9520, L100.0100, [id number] #### [facility] [address] [place], [address] CO2 [Moles/Vol] 27.0 mmol/L Normal 21.0-32.0 [facility] Comment on above: Performed By: #### L 501.9520, L100.0100, [id number] #### [facility] [address] [place], [address] Creatinine [Mass/Vol] 1.21 mg/dL Normal 0.70-1.30 [facility] Comment on above: Result Comment: The validity of the calculated GFR GFRAA in patients over 70 years has not been determined. Clinical correlation is essential. Performed By: #### L 501.9520, L100.0100, L500.4050 #### [facility] [address] [place], [address] EST GFR - AA 83 mL/min Normal >60 [facility] Comment on above: Result Comment: Afri can [place] GFR Calc Performed By: #### L 501.9520, L100.0100, [id number] #### [facility] [address] [place], [address] GAP 6 Normal 5-15 [facility] Comment on above: Performed By: #### L 501.9520, L100.0100, [id number] #### [facility] [address] [place], [address] GFR/1.73 sq M.predicted among non-blacks MDRD (S/P/Bld) [Vol rate/Area] 69 mL/min/{1.73_m2} Normal >60 [facility] Comment on above: Result Comment: Non- GFR Calc Performed By: #### L 501.9520, L100.0100, L500.4050 #### [facility] [address] [place], [address] Globulin (S) [Mass/Vol] 3.2 g/dL Normal 2.2-4.2 [facility] Comment on above: Performed By: #### L 501.9520, L100.0100, [id number] #### [facility] [address] [place], [address] Glucose [Mass/Vol] 96 mg/dL Normal 74-106 [facility] Comment on above: Performed By: #### L 501.9520, L100.0100, [id number] #### [facility] [address] [place], [address] Potassium [Moles/Vol] 4.0 mmol/L Normal 3.5-5.1 [facility] Comment on above: Performed By: #### L 501.9520, L100.0100, L500.4050 #### [facility] [address] [place], [address] Sodium [Moles/Vol] 140 mmol/L Normal 136-145 [facility] Comment on above: Performed By: #### L 501.9520, L100.0100, [id number] #### [facility] [address] [place], [address] T PROT 7.2 g/dL Normal 6.4-8.2 [facility] Comment on above: Performed By: #### L 501.9520, L100.0100, [id number] #### [facility] [address] [place], [address] Urea nitrogen [Mass/Vol] 13 mg/dL Normal 7-18 [facility] Comment on above: Performed By: #### L 501.9520, L100.0100, [id number] #### [facility] [address] [place], [address] Thyroid Stim Hormone (TSH)on 09-15-2024 TSH 22.400 uIU/mL High 0.358-3.740 [facility] Comment on above: Performed By: #### L 501.9520, L100.0100, L500.4050 #### [facility] [address] [place], [address] Absolute neutrophil countOrd ered By: James Coughlin on 09-14-2024 Neutrophils (Bld) [#/Vol] 6.0 10*3/uL 2.0-7.7 [facility] Albumin to globulin ratioOrd ered By: James Coughlin on 09-14-2024 Albumin/Globulin [Mass ratio] 1.2 {ratio} 0.9-2.4 [facility] Basophil percentageOrdered B y: James Coughlin on 09-14-2024 Basophils/100 WBC (Bld) 0.3 % 0-1 [facility] Bilirubin, totalOrdered By: James Coughlin on 02-03-2025 Bilirubin [Mass/Vol] 0.40 mg/dL 0.20-1.00 [facility] Comment on above: For patients on eltr ombopag therapy, use of Dimension [place] TBIL is not recommended. Blood urea nitrogen (BUN)/cr eatinine ratioOrdered By: James Coughlin on 09-14-2024 Urea nitrogen/Creatinine [Mass ratio] 10.7 mg/mg 10-20 [facility] Carbon dioxide measurementOr dered By: James Coughlin on 09-14-2024 CO2 [Moles/Vol] 27.0 mmol/L 21.0-32.0 [facility] Chloride measurementOrdered By: James Coughlin on 09-14-2024 Chloride [Moles/Vol] 106 mmol/L 98-107 [facility] Eosinophil percentageOrdered By: James Coughlin on 09-14-2024 Eosinophils/100 WBC (Bld) 0.1 % 0-5 [facility] Erythrocyte distribution wid th (RBC) [Ratio]Ordered By: James Coughlin on 09-14-2024 Erythrocyte distribution width (RBC) [Entitic vol] 41.1 fL 35.1-43.9 [facility] Erythrocyte distribution wid th ratioOrdered By: James Coughlin on 09-14-2024 Erythrocyte distribution width (RBC) [Ratio] 12.9 % 11.6-14.6 [facility] Estimated glomerular filtrat ion rate (GFR) AmericanOrdered By: James Coughlin on 09-14-2024 Estimated GFR (MDRD) Amer 83 mL/min >60 [facility] Comment on above: GFR Calc Glomerular filtration rate ( GFR) estimationOrdered By: James Coughlin on 09-14-2024 Estimated GFR (MDRD) Non-Af Amer 69 mL/min >60 [facility] Comment on above: Non- GFR Calc Glucose measurementOrdered B y: James Coughlin on 09-14-2024 Glucose [Mass/Vol] 96 mg/dL 74-106 [facility] Hematocrit Auto (Bld) [Volum e fraction]Ordered By: James Coughlin on 09-14-2024 Hematocrit (Bld) [Volume fraction] 40.7 % 40-54 [facility] Hemoglobin measurementOrdere d By: James Coughlin on 09-14-2024 Hemoglobin (Bld) [Mass/Vol] 14.1 g/dL 13.0-16.5 [facility] Immature granulocytes/100 WB C Auto (Bld)Ordered By: James Coughlin on 09-14-2024 Immature granulocytes/100 WBC (Bld) 0.300 % 0.0-0.9 [facility] Comment on above: IG% - Immature Granu locytes (promyelocytes, myelocytes and metamyelocytes) > 1% indicates that a LEFT SHIFT is Present. Laboratory - Chemistry and C hemistry - challengeOrdered By: James Coughlin on 09-14-2024 AST [Catalytic activity/Vol] 20 U/L 15-37 [facility] Lymphocytes Auto (Unsp spec) [#/Vol]Ordered By: James Coughlin on 09-14-2024 Lymphocytes (Bld) [#/Vol] 2.26 10*3/uL 0.83-4.51 [facility] Lymphocytes/100 WBC Auto (Un sp spec)Ordered By: James Coughlin on 09-14-2024 Lymphocytes/100 WBC (Bld) 25.8 % 19-41 [facility] MCV (mean corpuscular volume ) determinationOrdered By: James Coughlin on 09-14-2024 MCV (RBC) [Entitic vol] 87.5 fL 80-94 [facility] Mean corpuscular hemoglobin (MCH) determinationOrdered By: James Coughlin on 09-14-2024 MCH (RBC) [Entitic mass] 30.3 pg 27.0-32.0 [facility] Mean corpuscular hemoglobin concentration (MCHC) determinationOrdered By: James Coughlin on 09-14-2024 MCHC (RBC) [Mass/Vol] 34.6 g/dL 32-36 [facility] Mean platelet volume determi nationOrdered By: James Coughlin on 09-14-2024 Platelet mean volume (Bld) [Entitic vol] 10.8 fL 6.2-12.0 [facility] Monocyte percentageOrdered B y: James Coughlin on 09-14-2024 Monocytes/100 WBC (Bld) 5.5 % 0-10 [facility] Neutrophil percentageOrdered By: James Coughlin on 09-14-2024 Neutrophils/100 WBC (Bld) 68.0 % 47-70 [facility] Nucleated red blood cell per centageOrdered By: James Coughlin on 09-14-2024 Nucleated RBC/100 WBC (Bld) [Ratio] 0 % 0-5 [facility] Platelet countOrdered By: Do ra Coughlin on 09-14-2024 Platelets (Bld) [#/Vol] 232 10*3/uL 150-450 [facility] Potassium measurementOrdered By: James Coughlin on 09-14-2024 Potassium [Moles/Vol] 4.0 mmol/L 3.5-5.1 [facility] RBC Auto (Bld) [#/Vol]Ordere d By: James Coughlin on 09-14-2024 RBC (Bld) [#/Vol] 4.65 10*6/uL 4.6-6.2 [facility] Serum anion gap measurementO rdered By: James Coughlin on 09-14-2024 Anion gap [Moles/Vol] 6 mmol/L 5-15 [facility] Serum globulin measurementOr dered By: James Coughlin on 09-14-2024 Globulin (S) [Mass/Vol] 3.2 g/dL 2.2-4.2 [facility] Serum or plasma alanine menard otransferase (ALT) measurementOrdered By: James Coughlin on 09-14-2024 ALT [Catalytic activity/Vol] 26 U/L 16-61 [facility] Serum or plasma albumin ignacio urement (mass/volume)Ordered By: James Coughlin on 09-14-2024 Albumin [Mass/Vol] 4.0 g/dL 3.2-5.0 [facility] Serum or plasma alkaline rodney sphatase measurementOrdered By: James Coughlin on 09-14-2024 ALP [Catalytic activity/Vol] 109 U/L 45-117 [facility] Serum or plasma calcium ignacio urement (mass/volume)Ordered By: James Coughlin on 09-14-2024 Calcium [Mass/Vol] 8.9 mg/dL 8.5-10.1 [facility] Serum or plasma creatinine m easurement (mass/volume)Ordered By: James Coughlin on 09-14-2024 Creatinine [Mass/Vol] 1.21 mg/dL 0.70-1.30 [facility] Comment on above: The validity of the calculated GFR & GFRAA in patients over 70 years has not been determined. Clinical correlation is essential. Serum or plasma urea nitroge n measurement (mass/volume)Ordered By: James Coughlin on 09-14-2024 Urea nitrogen [Mass/Vol] 13 mg/dL 7-18 [facility] Sodium levelOrdered By: James Coughlin on 09-14-2024 Sodium [Moles/Vol] 140 mmol/L 136-145 [facility] TSH QnOrdered By: James pablo on 09-14-2024 Thyroid Stimulating Hormone (TSH) 22.400 uIU/mL High 0.358-3.740 [facility] Total proteinOrdered By: Cristóbal Coughlin on 09-14-2024 Protein [Mass/Vol] 7.2 g/dL 6.4-8.2 [facility] White blood cell (WBC) count Ordered By: James Coughlin on 09-14-2024 WBC (Bld) [#/Vol] 8.8 10*3/uL 4.4-11.0 [facility] S. pyogenes Ag IA.rapid Ql ( Throat)on 07-27-2024 S. pyogenes Ag IA Ql (Unsp spec) Positive [facility] Serum or plasma thyroid stim ulating hormone (TSH) measurement (units/volume)Ordered By: James Coughlin on 09-10-2023 TSH Qn 2.18 uIU/mL 0.358-3.74 [facility] Basophil percentageOrdered B y: James Coughlin on 07-31-2023 Cholesterol [Mass/Vol] 177 mg/dL <200 [facility] Comment on above: <200 mg/dL Desirable 200-240 mg/dL Borderline >240 mg/dL High Risk Triglyceride [Mass/Vol] 490 mg/dL <199 [facility] Comment on above: The drugs N-Acetylcy steine and Metamizole may falsely depress this assay. TRIGLYCERIDE IS GREATER THAN 400 mg/dL. LDL RESULT IS INVALID AND WILL NOT BE REPORTED.Serum Triglycerides Reference Interval Normal <150 mg/dL Borderline high 150 - 199 mg/dL High 200 - 499 mg/dL Very High > or = 500 mg/dL Laboratory - Chemistry and C hemistry - challengeOrdered By: James Coughlin on 07-31-2023 Free T4 [Mass/Vol] 0.59 ng/dL 0.76-1.46 [facility] No Panel InformationOrdered By: James Coughlin on 07-31-2023 Thyroid Stimulating Hormone (TSH) 26.90 uIU/mL 0.358-3.74 [facility] Serum or plasma cholesterol in HDL measurement (mass/volume)Ordered By: James Coughlin on 07-31-2023 Cholesterol in HDL [Mass/Vol] 34 mg/dL >40 [facility] Comment on above: The drugs N-Acetylcy steine and Metamizole may falsely depress this assay. Reference Range HDL <40 mg/dL Low HDL Cholesterol HDL >or= 60 mg/dL High HDL Cholesterol Serum or plasma cholesterol in VLDL measurement (mass/volume)Ordered By: James Coughlin on 07-31-2023 Cholesterol in VLDL [Mass/Vol] [facility] Comment on above: Test not performed Serum or plasma low density lipoprotein (LDL) cholesterol measurement (mass/volume)Ordered By: James Coughlin on 07-31-2023 Cholesterol in LDL [Mass/Vol] [facility] Comment on above: Test not performed Laboratory - Chemistry and C hemistry - challengeOrdered By: James Coughlin on 12-03-2022 Free T4 [Mass/Vol] 0.98 ng/dL 0.76-1.46 [facility] No Panel InformationOrdered By: James Coughlin on 12-03-2022 Thyroid Stimulating Hormone (TSH) 3.53 uIU/mL 0.358-3.74 [facility] No Panel Informationon 11-10 Thyroid Stimulating Hormone (TSH) 0.10 uIU/mL 0.358-3.74 [facility] Work Phone: Vital Signs Date Time Vital Sign Value Performing Clinician Jordana guardado 11-10-2024 16:26-0400 Body height 177.8 cm James MARTE Work Phone: [facility] 11-10-2024 16:26-0400 Body mass index (BMI) [Ratio] 25.2 kg/m2 James Coughlin DIRECTOR [employer] Work Phone: [facility] 11-10-2024 16:26-0400 Body temperature 97.8 [degF] James Coughlin DIRECTOR [employer] Work Phone: [facility] 11-10-2024 16:26-0400 Body weight 79.83 kg James Coughlin DIRECTOR [employer] Work Phone: [facility] 11-10-2024 16:26-0400 Diastolic blood pressure 70 mm[Hg] James Coughlin DIRECTOR [employer] Work Phone: [facility] 11-10-2024 16:26-0400 Heart rate 64 /min James Coughlin DIRECTOR [employer] Work Phone: [facility] 11-10-2024 16:26-0400 Respiratory rate 18 /min James Coughlin DIRECTOR [employer] Work Phone: [facility] 11-10-2024 16:26-0400 SaO2% (BldA) [Mass fraction] 98 % James Coughlin DIRECTOR [employer] Work Phone: [facility] 11-10-2024 16:26-0400 Systolic blood pressure 115 mm[Hg] James Coughlin DIRECTOR [employer] Work Phone: [facility] 09-14-2024 17:42-0500 Body mass index (BMI) [Ratio] 26.1 kg/m2 James Coughlin DIRECT[employer] Work Phone: [facility] 09-14-2024 17:42-0500 Body temperature 97.8 [degF] James Coughlin DIRECTOR [employer] Work Phone: [facility] 09-14-2024 17:42-0500 Body weight 82.55 kg James Coughlin DIRECTOR [employer] Work Phone: [facility] 09-14-2024 17:42-0500 Diastolic blood pressure 78 mm[Hg] James Coughlin DIRECTOR [employer] Work Phone: [facility] 09-14-2024 17:42-0500 Heart rate 87 /min James Coughlin DIRECTOR [employer] Work Phone: [facility] 09-14-2024 17:42-0500 Respiratory rate 18 /min James Coughlin DIRECTOR [employer] Work Phone: [facility] 09-14-2024 17:42-0500 SaO2% (BldA) [Mass fraction] 98 % James Coughlin DIRECTOR [employer] Work Phone: [facility] 09-14-2024 17:42-0500 Systolic blood pressure 122 mm[Hg] James Coughlin DIRECTOR [employer] Work Phone: [facility] 07-27-2024 14:36-0500 Body mass index (BMI) [Ratio] 25.7 kg/m2 James Coughlin DIRECTOR NETWORK DEVELOPMENT-C Work Phone: [facility] 07-27-2024 14:36-0500 Body temperature 98.1 [degF] James Coughlin DIRECTOR NETWORK DEVELOPMENT-C Work Phone: [facility] 07-27-2024 14:36-0500 Body weight 81.19 kg James Coughlin DIRECTOR NETWORK DEVELOPMENT-C Work Phone: [facility] 07-27-2024 14:36-0500 Diastolic blood pressure 78 mm[Hg] James Coughlin DIRECTOR NETWORK DEVELOPMENT-C Work Phone: [facility] 07-27-2024 14:36-0500 Heart rate 91 /min James Coughlin DIRECTOR NETWORK DEVELOPMENT-C Work Phone: [facility] 07-27-2024 14:36-0500 Respiratory rate 18 /min James Coughlin DIRECTOR NETWORK DEVELOPMENT-C Work Phone: [facility] 07-27-2024 14:36-0500 SaO2% (BldA) [Mass fraction] 98 % James Coughlin DIRECTOR NETWORK DEVELOPMENT-C Work Phone: [facility] 07-27-2024 14:36-0500 Systolic blood pressure 128 mm[Hg] James MARTE Work Phone: [facility] 09-10-2023 17:26-0500 Body height 177.8 cm [facility] 09-10-2023 17:26-0500 Body mass index (BMI) [Ratio] 27.6 kg/m2 [facility] 09-10-2023 17:26-0500 Body temperature 97.9 [degF] [facility] 09-10-2023 17:26-0500 Body weight 87.54 kg [facility] 09-10-2023 17:26-0500 Diastolic blood pressure 70 mm[Hg] [facility] 09-10-2023 17:26-0500 Heart rate 76 /min [facility] 09-10-2023 17:26-0500 Respiratory rate 18 /min [facility] 09-10-2023 17:26-0500 SaO2% (BldA) [Mass fraction] 98 % [facility] 09-10-2023 17:26-0500 Systolic blood pressure 130 mm[Hg] [facility] 07-31-2023 17:18-0500 Body height 177.8 cm [facility] 07-31-2023 17:18-0500 Body mass index (BMI) [Ratio] 27.1 kg/m2 [facility] 07-31-2023 17:18-0500 Body temperature 97.7 [degF] [facility] 07-31-2023 17:18-0500 Body weight 85.72 kg [facility] 07-31-2023 17:18-0500 Diastolic blood pressure 70 mm[Hg] [facility] 07-31-2023 17:18-0500 Respiratory rate 18 /min [facility] 07-31-2023 17:18-0500 Systolic blood pressure 140 mm[Hg] [facility] 12-03-2022 18:52-0400 Body height 177.8 cm [facility] 12-03-2022 18:52-0400 Body mass index (BMI) [Ratio] 26.2 kg/m2 [facility] 12-03-2022 18:52-0400 Body temperature 97.3 [degF] [facility] 12-03-2022 18:52-0400 Body weight 83 kg [facility] 12-03-2022 18:52-0400 Diastolic blood pressure 70 mm[Hg] [facility] 12-03-2022 18:52-0400 Heart rate 72 /min [facility] 12-03-2022 18:52-0400 Respiratory rate 18 /min [facility] 12-03-2022 18:52-0400 SaO2% (BldA) [Mass fraction] 98 % [facility] 12-03-2022 18:52-0400 Systolic blood pressure 142 mm[Hg] [facility] 11-10-2021 16:46-0400 Body height 177.8 cm [facility] Work Phone: Encounters Encounter Date Encounter Type Care Provider Facility Start: 12-15-2024 End: 12-15-2024 ambulatory JAMES COUGHLIN Facility:[facility] Start: 11-10-2024 End: 11-10-2024 ambulatory James Coughlin DIRECTOR NETWORK DEVELOPMENT-C Work Phone: [facility] Work Phone: Start: 11-10-2024 End: 11-10-2024 Patient encounter procedure James Coughlin DIRECTOR NETWORK DEVELOPMENT-C -Laboratory, Specimen Work Phone: Start: 11-10-2024 End: 11-10-2024 ambulatory James Coughlin DIRECTOR NETWORK DEVELOPMENT Facility:[facility] Start: 11-04-2024 End: 11-04-2024 ambulatory JAMES COUGHLIN Facility:[facility] Start: 10-18-2024 End: 10-18-2024 Emergency department patient visit JAMES COUGHLIN Facility:[facility] Start: 09-14-2024 End: 09-14-2024 Patient encounter procedure James Coughlin DIRECTOR NETWORK DEVELOPMENT-C -Laboratory, Specimen Work Phone: Start: 09-14-2024 End: 09-14-2024 ambulatory James Coughlin DIRECTOR NETWORK DEVELOPMENT Facility:[facility] Start: 09-10-2023 End: 09-10-2023 ambulatory [facility] Work Phone: Start: 09-10-2023 End: 09-10-2023 Patient encounter procedure [facility]-Laboratory, Specimen Work Phone: Start: 07-31-2023 End: 07-31-2023 ambulatory [facility] Work Phone: Start: 07-31-2023 End: 07-31-2023 Patient encounter procedure [facility]-Laboratory, Specimen Work Phone: Start: 12-03-2022 End: 12-03-2022 ambulatory [facility] Work Phone: Start: 12-03-2022 End: 12-03-2022 Patient encounter procedure [facility]-Laboratory, Specimen Start: 11-10-2021 End: 11-10-2021 Patient encounter procedure [facility]-Laboratory, Specimen Start: 11-19-2017 Ambulatory [facility] Plan of Treatment Date Care Activity Detail Author Prolactin measurement [facility] Payers Date Payer Category Payer Self-pay [id number] 2022 Unknown [id number] 1980 Unknown [id number] . [id number] 1980 Unknown [id number] . [id number] 1978 Unknown [id number] .. [id number] Unknown [id number] Unknown [id number] . [id number] Unknown [id number] Unknown Social History Date Type Detail Facility Start: 10-19-2020 End: 10-19-2020 Tobacco smoking status NHIS Unknown if ever smoked [facility] Start: 1980 Sex Assigned At Male [facility] Start: 07-27-2024 Tobacco smoking stat us NHIS Never smoked tobacco (finding) [facility] Start: 11-16-2024 Sex Male (finding) [facility] Evaluation note 07-27-2024 Note Date & Type Note Facility 07-27-2024 Evaluation note Diagnosis Onset Date Resolution Hypothyroidism (acquired) acute July 27 024 3:33pm Pharyngitis acute July 3:33pm Winston's thyroiditis acute F [id number] 5:35pm Hypothyroidism (acquired) acute September 14 5:35pm Hypothyroidism (acquired) acute November 10, 2024 4:03pm Vertigo acute November 10 4:03pm [facility] Work Phone: Evaluation note Note Date & Type Note Facility Evaluation note Diagnosis Onset Date Hypothyroidism (acquired) [facility] Work Phone: Evaluation note Note Date & Type Note Facility Evaluation note Diagnosis Onset Date Winston's thyroiditis acut e Hypothyroidism (acquired) [facility] Work Phone: Evaluation note Note Date & Type Note Facility Evaluation note Diagnosis Onset Date Winston's thyroiditis acut e Hypothyroidism (acquired) [facility] Winston's thyroiditis acut e Hypothyroidism (acquired) [facility] Work Phone: Reason for referral (narrative) Note Date & Type Note Facility Reason for referral (narrative) No reason for referral information available [facility] Work Phone: Summary Purpose Family History No Family History Records Found Relationship Condition Age at Onset Recorded Date/T dorian Not Specified Cerebrovascular accident (CVA) Unknown Advance Directives No Advanced Directives Records FoundNo Advanced Directives Records FoundNo Advanced Directives Records FoundNo Advanced Directives Records FoundNo Advanced Directives Records Found Chief Complaint and Reason for Visit Chief Complaint Lab draw(TSH) Reason for Visit Hypothyroidism (acqu ired) Chief Complaint medication refills & Lab(TSH) Reason for Visit Hypothyroidism (acqu ired) Chief Complaint Thyroid Reason for Visit Winston's thyroidi tis Hypothyroidism (acquired) Chief Complaint Thyroid F/up new medication/lab Reason for Visit Winston's thyroidi tis Hypothyroidism (acquired) Winston's thyroiditis Hypothyroidism (acquired) Chief Complaint Admit Date Sore throat/Fatigue X2 weeks/meds Decemb er 2023 3:33pm medication refills/Labs September 14 5:35pm LABWORK September 14, 2024 1 1:00pm Labs/vertigo November 10, 2024 4:03 pm Reason for Visit Admit Date Hypothyroidism (acquired) July 27, 2024 3:33pm Pharyngitis July 27, 2024 3:33pm Winston's thyroiditis September 14 5:35pm Hypothyroidism (acquired) September 14, 2024 5:35pm Hypothyroidism (acquired) November 10 4:03pm Vertigo November 10, 2024 4:03 pm Additional Source Comments (unrecognized sect ion and content) No Status Records FoundNo Status Records FoundNo Status Records FoundNo Status Records FoundNo Status Records Found INFORMATION SOURCE (unrecogn ized section and content) DATE CREATED AUTHOR 01/30/2018 [facility] DATE CREATED AUTHOR AUTHOR'S ORGANIZ ATION 10/21/2024 [facility] DATE CREATED AUTHOR AUTHOR'S ORGANIZ ATION 10/24/2024 [facility] DATE CREATED AUTHOR AUTHOR'S ORGANIZ ATION 11/17/2024 [facility] DATE CREATED AUTHOR AUTHOR'S ORGANIZ ATION 12/18/2024 [facility] Goals (unrecognized section and content) Goals may be documented in a n alternate sectionGoals may be documented in an alternate sectionGoals may be documented in an alternate sectionGoals may be documented in an alternate sectionGoals may be documented in an alternate section Care Teams (unrecognized sec tion and content) Team Status: Active Member Role Status Dates James Coughlin DIRECTOR NETWORK DEVELOPMENT, DIRECTOR NETWORK DEVELOPMENT-C Family Provider Active Team Status: Inactive Member Role Status Dates James Coughlin DIRECTOR NETWORK DEVELOPMENT, DIRECTOR NETWORK DEVELOPMENT-C Attending Provider Active Team Status: Active Member Role Status Dates James Coughlin DIRECTOR NETWORK DEVELOPMENT, DIRECTOR NETWORK DEVELOPMENT-C Family Provider Active James Coughlin DIRECTOR NETWORK DEVELOPMENT, DIRECTOR NETWORK DEVELOPMENT-C Primary Care Provider Active Team Status: Inactive Member Role Status Dates James Coughlin DIRECTOR NETWORK DEVELOPMENT, DIRECTOR NETWORK DEVELOPMENT-C Primary Care Provider, Attend ing Provider Active Team Status: Inactive Member Role Status Dates James Coughlin DIRECTOR NETWORK DEVELOPMENT, DIRECTOR NETWORK DEVELOPMENT-C Primary Care Pr ovider, Attending Provider, Referring Provider Active Team Status: Inactive Member Role Status Dates James Coughlin DIRECTOR NETWORK DEVELOPMENT, DIRECTOR NETWORK DEVELOPMENT-C Primary Care Provider Active Start: July 27, 2024 End: July 27, 2024 James Coughlin DIRECTOR NETWORK DEVELOPMENT, DIRECTOR NETWORK DEVELOPMENT-C Attending Provider Active Start: July 27, 2024 End: July 27, 2024 James oCughlin DIRECTOR NETWORK DEVELOPMENT, DIRECTOR NETWORK DEVELOPMENT-C Referring Provider Active Start: July 27, 2024 End: July 27, 2024 Team Status: Inactive Member Role Status Dates James Coughlin DIRECTOR NETWORK DEVELOPMENT, DIRECTOR NETWORK DEVELOPMENT-C Primary Care Provider Active Start: September 14, 2024 End: September 14, 2024 James Coughlin DIRECTOR NETWORK DEVELOPMENT, DIRECTOR NETWORK DEVELOPMENT-C Attending Provider Active Start: September 14, 2024 End: September 14, 2024 James Coughlin DIRECTOR NETWORK DEVELOPMENT, DIRECTOR NETWORK DEVELOPMENT-C Referring Provider Active Start: September 14, 2024 End: September 14, 2024 Team Status: Inactive Member Role Status Dates James Coughlin DIRECTOR NETWORK DEVELOPMENT, DIRECTOR NETWORK DEVELOPMENT-C Primary Care Provider Active Start: November 10, 2024 End: November 10, 2024 James Coughlin DIRECTOR NETWORK DEVELOPMENT, DIRECTOR NETWORK DEVELOPMENT-C Attending Provider Active Start: November 10, 2024 End: November 10, 2024 James Coughlin DIRECTOR NETWORK DEVELOPMENT, DIRECTOR NETWORK DEVELOPMENT-C Referring Provider Active Start: November 10, 2024 End: November 10, 2024 FOR RECORDS PERTAINING TO PATIENTS WHO ARE [...] BE BASED ON THE PRIMARY CLINICAL RECORDS. [employer] provides no warranty or guarantee of the accuracy or completeness of information in this document.
[2025-02-19 23:31] LABS: Hematocrit 40.9 % (40-54); Hemoglobin 14.1 g/dL (13.0-16.5); Immature Granulocytes Count 0.030 X10^3/uL (0.0-0.0); Mean Corp Hgb Conc 34.5 g/dL (32-36); Mean Corpuscular Volume 87.8 fL (80-94); Mean Platelet Vol. 10.8 fl (6.2-12.0); NRBC Flagged by Analyzer 0 % (0-5); Platelet Count 228 K/mm3 (150-450); RBC Distribution Width CV 12.6 % (11.6-14.6); RBC Distribution Width SD 40.7 fl (35.1-43.9); Red Blood Count 4.66 M/mm3 (4.6-6.2); White Blood Count 6.9 K/mm3 (4.4-11.0)
[2025-02-20 00:06] LABS: AST(SGOT) 24 U/L (<=37); Alanine Aminotransfer ALT/SGPT 24 U/L (<=46); Albumin, Serum 4.5 g/dL (3.5-5.0); Alkaline Phosphatase 118 U/L (40-129); Anion Gap 11 (5-15); BUN 13 mg/dL (4-19); BUN/Creat Ratio 12.0 RATIO (10-20); Calcium,Total 9.2 mg/dL (7.6-11.0); Carbon Dioxide 24.0 mmol/L (21.0-32.0); Chloride 103 mmol/L (98-108); Free T3 3.8 pg/mL (2.18-3.98); Globulin 2.5 g/dL (2.2-4.2); Glucose 91 mg/dL (70-99); Potassium 4.6 mmol/L (3.3-5.1)
[2025-02-20 00:19] LABS: PTHIN 89 pg/mL (11-61)
== END | disposition home or self-care (01) ==
PROVIDERS: PCP Nurse Practitioner; Referring Provider Nurse Practitioner; Visit Provider Nurse Practitioner
DX: H81.03 Meniere's disease, bilateral (principal); E06.3 Autoimmune thyroiditis; E03.9 Hypothyroidism, unspecified
CPT/HCPCS: 80053; 83970; 84439; 84443; 84481; 84482; 85025